=== PATIENT | male | born 1955 | race Caucasian/White ===

== ENCOUNTER → 2016-10-16 | Outpatient (CLI) | payer OTHER | END | disposition home or self-care (01) | LOC: YCFC.O 07:32 | PROVIDERS: ATTEND Nurse Practitioner Family | DX: E11.9 Type 2 diabetes mellitus without complications (principal); E78.2 Mixed hyperlipidemia; I10 Essential (primary) hypertension ==

== ENCOUNTER 2017-01-22 14:13 | Inpatient (IN) | payer OTHER ==
--- NOTE | 2017-01-22 15:07 | RAD ---
EXAM DESCRIPTION: Tibia/Fibula,Left CLINICAL HISTORY: INFECTION OF THE SKIN AND SUBCUTANEOUS TISSUE COMPARISON: None. TECHNIQUE: AP/lateral FINDINGS: Subcutaneous soft tissue swelling is observed. No bone abnormality is seen. No radiopaque foreign body is detected in the soft tissues. Some arterial calcification is observed. Some venous phleboliths are observed along the anterior orosco. IMPRESSION: Soft tissue swelling is observed. No plain film evidence of osteomyelitis is detected. Electronically signed by: Perfecto Mejias MD 01/22/2017 3:05 PM CDT
--- NOTE | 2017-01-22 15:08 | RAD ---
EXAM DESCRIPTION: Foot,Left 3 Views CLINICAL HISTORY: 61 years, Male, LOCAL INFECTION OF THE SKIN AND SUBCUTANEOUS TISSUE COMPARISON: None TECHNIQUE: AP, lateral, and oblique views of the left foot FINDINGS: There is diffuse soft tissue swelling. This is particularly prominent over the forefoot. There are multiple punctate foci of decreased density thought to represent air in the soft tissues. There is complete destruction of the second distal phalanx consistent with osteomyelitis. There is fragmentation of the dorsal aspect of the tarsal bones especially the distal tarsal row also with associated soft tissue swelling. IMPRESSION: Findings are consistent with Charcot foot with fragmentation of the bones of the midfoot especially distal tarsal row Diffuse cellulitis of the forefoot with osteomyelitis involving the second distal phalanx Electronically signed by: Patrice Valdivia MD 01/22/2017 3:06 PM CDT
--- NOTE | 2017-01-22 16:30 | HP ---
SUPERVISING PHYSICIAN: Meño Nino MD CHIEF COMPLAINT: Left foot cellulitis. HISTORY OF PRESENT ILLNESS: Mr. Castro is a 61 year, male patient with a history of diabetes that was noted in the last three weeks to develop a blood blister on his second and third toe. He and his had been trying Epsom soaks at home for treatment efforts, however, he continued to show increasing swelling to the lower left leg and foot. They called [facility] on this past Saturday who then called a prescription in for clindamycin. The cellulitis to the right foot continued to worsen over the weekend despite antibiotic treatment and, therefore, the patient presented to [facility] this afternoon for evaluation and treatment. On exam at the clinic, it was found that the patient had a significant degree of cellulitis with obvious infection to multiple toes on the left foot, therefore, has requested that the patient be admitted to the hospital for definitive treatment with antibiotic therapy. Prior to treatment, it was requested that the patient have evaluation done with laboratory studies and radiographic studies to include plain films and arterial and venous Doppler studies. Those were completed showing on plain film that there was findings consistent with Charcot foot with fragmentation of the bones in the midfoot, especially distal tarsal row with a diffuse cellulitis of the forefoot with osteomyelitis involving the second distal phalanx. He then had arterial and venous Doppler studies completed with no evidence of significant stenosis or any evidence of deep venous thrombosis. Laboratory studies completed as well showed a significant leukocytosis with a white count of 18,000 with differential showing a left shift with D-dimer of 1051. The patient is now going to be admitted directly to the Medical/Surgical Floor for treatment of underlying osteomyelitis of the left foot for definitive treatment with antibiotics and wound care management and consultation with Dr. Caldwell. The patient was admitted to the Medical/ Surgical Floor in stable condition. PAST MEDICAL HISTORY: 1. Non-insulin dependent diabetes mellitus, diagnosed in 2005. 2. Hypertension. PAST SURGICAL HISTORY: No reported surgeries. HOME MEDICATIONS: 1. Pravachol 20 mg daily. 2. Glucophage 500 mg at noon. 3. Glucophage 1000 mg twice daily. 4. Zestril 20 mg daily. 5. Hydrochlorothiazide 25 mg daily. 6. Glyburide 10 mg at bedtime. 7. Glyburide 5 mg daily. ALLERGIES: NO KNOWN DRUG ALLERGIES. FAMILY HISTORY: Both mother and father had diabetes. Mother is from a stroke and father is from complications secondary to diabetes. 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 He is single, but is living with a residential female check viewer. He denies ever smoking , does not drink alcohol, and no illicit drugs. REVIEW OF SYSTEMS: GENERAL: He reports he has had some chills and fevers starting this afternoon prior to admission, but unintentional or unexplained weight loss. HEENT: He has had a headache, but no dizziness or syncopal episodes. No nasal congestion or sore throat. RESPIRATORY: Denies coughing or shortness of breath. CARDIAC: Denies chest pain, palpitations or syncopal episodes. GASTROINTESTINAL: Denies nausea, vomiting, diarrhea, or abdominal pain. GENITOURINARY: He does have increased nocturia, but no reported hematuria or other urinary symptoms. MUSCULOSKELETAL: As noted in history of present illness, swelling and osteomyelitis to the left foot. NEUROLOGIC: Denies syncopal episodes, changes in vision or other neurologic deficits. PHYSICAL EXAMINATION: VITAL SIGNS: On admission, temperature 98.5. Pulse 105. Blood pressure 173/ 79. Respirations 20. Saturation 90% on room air. Admission weight 116.9 kg. GENERAL: The patient is very pleasant, appears to be in no acute distress. He is alert. HEENT: Tympanic membranes are obscured by cerumen. Oropharynx is pink, moist without any lesions. NECK: Supple, nontender. No jugular venous distention. RESPIRATORY: Clear to auscultation bilaterally without rhonchi, wheezing or rales CARDIOVASCULAR: Regular rate and rhythm without any appreciable murmurs, gallops, or rubs. ABDOMEN: Soft, nontender. Positive bowel sounds. EXTREMITIES: The left lower extremity shows a significant amount of erythema involving the midfoot, extending up into the midcalf. There is notable warmth on palpation. Dorsalis pedis and posterior tibial pulses are not felt. There are ecchymotic and mottled areas with erythema to the third toe with drainage between the second and third toes with severe Charcot like deformation noted of the midfoot. NEUROLOGIC: The patient is alert and oriented times three. Facial features are symmetrical. Extraocular movements are within normal limits. There is no nystagmus noted. LABORATORY: CBC shows leukocytosis of 18,000, hemoglobin 12.1, hematocrit 35.8 , platelet count 279,000. Differential does show a left shift. Coagulation studies showed an elevated D-dimer of 1051. Chemistries showed low sodium 132, potassium normal at 4.3. Glucose 134, hemoglobin A1c 6.9, lactic acid 1.4. Liver functions showed just a slightly elevated AST of 44, otherwise, all other liver functions were within normal limits. Urinalysis pending. MICROBIOLOGY: Wound culture of areas of concern of the left foot are pending. Blood cultures are pending. RADIOLOGY: Left foot x-ray, three view, per radiologic interpretation shows findings consistent with Charcot foot with fragmentation of the bones of the midfoot, especially distal tarsal row with diffuse cellulitis of the forefoot with osteomyelitis involving the second distal phalanx. Tib-fib x-ray of the left leg per radiologic interpretation shows soft tissue swelling, but no plain film evidence of osteomyelitis was detected. He also had lower extremity Doppler studies to rule out deep venous thrombosis with no evidence of deep venous thrombosis per radiologic interpretation in the left leg. He also had arterial flow studies of the left leg with no hemodynamically significant stenosis to the foot. ASSESSMENT: 1. Cellulitis of the lower left extremity with osteomyelitis of the second toe with multiple fractures of the midfoot with Charcot deformity. 2. Non-insulin dependent diabetes mellitus with symptomatic peripheral neuropathies. 3. Hypertension. 4. Leukocytosis secondary to #1 with a normal lactic acid with no current indication of sepsis component. 5. Obesity with body mass index of 34.0. PLAN: The patient will be admitted directly to the [facility] for definitive treatment of underlying osteomyelitis of the left foot as noted above. We will start the patient on antibiotic therapy after wound cultures and blood cultures are completed. Antibiotic therapy currently will consist of Levaquin, Flagyl and vancomycin per pharmacy protocol awaiting final culture results to further target antibiotic therapy. Dr. Caldwell has been consulted and seen the patient and will continue to follow the patient along with Dr. Caldwell's recommendations for wound care and further management of the foot. He is encouraged to keep his foot elevated to decrease the swelling and to stay off the foot as much as possible. We will start the patient on DVT prophylaxis as per protocol. We will restart his home medications as appropriate once they have been updated and verified in the computer. We will anticipate length of stay to be at least three to seven days with pending culture results and anticipated residential antibiotic therapy given underlying osteomyelitis. At some point, it would be beneficial to pursue PICC line placement for continued antibiotic therapy should he need IV therapy, however, he may be able to continue with antibiotic therapy at some point with p.o. medications. Until discharge, we will continue to monitor the patient closely and treat appropriately. Once discharged, he will continue to need followup with Dr. Caldwell and [facility] as appropriate. #[id number] [facility]
--- NOTE | 2017-01-22 16:43 | US ---
EXAM DESCRIPTION: Extremity,Lower LT Arteries CLINICAL HISTORY: 61 years Male, R79.1 COMPARISON: None. TECHNIQUE: 2-D color flow and Doppler sonography FINDINGS: Left: Grayscale imaging demonstrates prominent groin lymph nodes. No 2-D evidence of stenosis is observed. Waveforms are multiphasic throughout Peak systolic velocities (cm/sec) are as follows: CRIMINAL INTELLIGENCE SPECIALIST: 210.8 Proximal SFA: 226.1 Mid SFA: 118.2 Distal SFA: 104.1 Popliteal: 123.5 ALONZO: 72.0 AUTOMOTIVE PARTS SALESPERSON: 79.1 Dorsalis pedis: 72 IMPRESSION: No hemodynamically significant stenosis. Electronically signed by: Perfecto Mejias MD 01/22/2017 4:42 PM CDT
--- NOTE | 2017-01-22 16:44 | US ---
EXAM DESCRIPTION: Venous,Lower Extremity LT CLINICAL HISTORY: SWELLING COMPARISON: None Available. TECHNIQUE: Left lower extremity venous duplex FINDINGS: There is no DVT identified. There is normal color flow observed with good flow augmentation. All deep veins compress normally. IMPRESSION: Negative for DVT Electronically signed by: Perfecto Mejias MD 01/22/2017 4:43 PM CDT
[2017-01-22] MEDS ORDERED: VANCOMYCIN PER PHARMACY INJ SCH (17:00)
[2017-01-22] MEDS ORDERED: SODIUM CHLORIDE 0.9% (FLUSH) 10 ML SYG IV PRN (17:06)
[2017-01-22] MEDS ORDERED: GLUCAGON INJ 1 MG VIAL SUBCU PRN (17:06)
[2017-01-22] MEDS ORDERED: ALUM & MAG HYDROX-SIMETHICONE 30 ML UD PO PRN (17:06)
[2017-01-22] MEDS ORDERED: MAGNESIUM HYDROXIDE 30 ML UD PO PRN (17:06)
[2017-01-22] MEDS ORDERED: DEXTROSE 50% 25 GM/50 ML SYG IV PRN (17:06)
[2017-01-22] MEDS ORDERED: ONDANSETRON INJ 4 MG/2 ML VIAL IV PRN (17:06)
--- NOTE | 2017-01-22 17:20 | CONS ---
DATE OF CONSULTATION: 01/22/17 HISTORY OF PRESENT ILLNESS: The patient is a 61 year-old male who was admitted with cellulitis, edema and drainage of the left foot. The drainage is around the third toe which is erythematous and mottled. There is pitting edema and erythema involving at least the mid foot with some edema all the way up into the calf. The patient's states that he gets swelling every day being on his feet all day, but it resolves nights until just recently with the left leg staying swollen and red. He denies significant fever or chills. He has been treated with Clindamycin as an outpatient at [facility]. The patient states he has been a diabetic for approximately 10 years. PAST MEDICAL HISTORY: Otherwise noncontributory. CURRENT MEDICATIONS: As listed in the record. ALLERGIES: As listed in the record. FAMILY HISTORY: Noncontributory. SOCIAL HISTORY: The patient works in the hospital dining area. He is . REVIEW OF SYSTEMS: There has been no known injury to the foot despite the x- ray pictures. PHYSICAL EXAMINATION: GENERAL: The patient is awake, alert and cooperative, and in no acute distress. EXTREMITIES: His left lower extremity reveals erythema past mid foot with edema up to the mid calf. The foot is warm but there is no palpable dorsalis pedis or posterior tibial pulse. The third toe is ecchymotic/mottled with erythema. There is some drainage between the second and third toe and the third and fourth toe, greatest between the second and third toe. RADIOLOGY: X-rays of the foot reveal a Charcot foot with broken bones in the mid foot and what appears to be osteomyelitis involving the distal phalanx of the second toe, not the third. ADDENDUM TO THE RADIOLOGIC EXAM: The arterial ultrasound of the left leg reveals normal arterial flow to the foot. LABORATORY: White count 18,000 this morning. His hemoglobin A1c was 6.2. Creatinine was 1.2. IMPRESSION: 1. Osteomyelitis of the foot with cellulitis of the third toe. 2. Osteomyelitis of the second toe. 3. Multiple fractures of the mid foot. PLAN: Will obtain a culture. Agree to begin broad coverage antibiotic. Await the cultures and elevation to resolve the edema. #[id number] [facility]
[2017-01-22] MEDS ORDERED: IV SET AND CAP CHANGE INJ INJ SCH (17:30)
[2017-01-22] MEDS ORDERED: CHLORHEXIDINE GLUCONATE 4 % 15 ML UD TOP ONE (18:32)
[2017-01-22] MEDS ORDERED: VANCOMYCIN HCL INJ 500 MG VIAL ONE (19:47)
[2017-01-22] MEDS ORDERED: SODIUM CHL 0.9% 250ML (AVIVA) 250 ML IVPB ONE (19:48)
[2017-01-22] MEDS ORDERED: VANCOMYCIN HCL INJ 1,000 MG VIAL IVPB ONE (19:48)
[2017-01-22] MEDS ORDERED: levoFLOXacin 500MG IV 100 ML IVPB ONE (19:55)
[2017-01-22] MEDS: VANCOMYCIN HCL INJ 1,000 MG, VANCOMYCIN HCL INJ 500 MG in SODIUM CHL 0.9% 250ML (AVIVA)... IVPB SCH (19:57)
[2017-01-22] MEDS ORDERED: metroNIDAZOLE IV PREMIX 500MG 100 ML IVPB ONE (19:57)
[2017-01-22] MEDS ORDERED: metFORMIN HCL 500 MG TAB ONE (20:14)
[2017-01-22] MEDS: glyBURIDE 5 MG TAB PO SCH (20:51)
[2017-01-22] MEDS: PRAVASTATIN SODIUM 20 MG TAB PO SCH (20:52)
[2017-01-22] MEDS: INSULIN LISPRO 100 UNITS/ML PEN SUBCU SCH (20:54)
[2017-01-22] MEDS ORDERED: NON-FORMULARY MEDICATION 1 EA MIS (Metformin Hcl [Glucophage] 1,000 MG) PO SCH (21:00)
[2017-01-22] MEDS ORDERED: metFORMIN HCL 500 MG TAB PO ONE (21:00)
[2017-01-22] MEDS: levoFLOXacin 500MG IV 500 MG in PREMIX BAG 1 BAG IVPB SCH (22:25)
[2017-01-22] MEDS: metroNIDAZOLE IV PREMIX 500MG 500 MG in PREMIX BAG 1 BAG IVPB SCH (23:32)
[2017-01-23] MEDS ORDERED: metroNIDAZOLE IV PREMIX 500MG 100 ML IVPB ONE ×3 (05:05→19:22)
[2017-01-23] MEDS ORDERED: VANCOMYCIN HCL INJ 1,000 MG VIAL IVPB ONE ×2 (05:05→07:37)
[2017-01-23] MEDS ORDERED: VANCOMYCIN HCL INJ 500 MG VIAL ONE ×2 (05:05→07:35)
[2017-01-23] MEDS ORDERED: SODIUM CHL 0.9% 250ML (AVIVA) 250 ML IVPB ONE ×2 (05:05→07:36)
[2017-01-23] MEDS: metroNIDAZOLE IV PREMIX 500MG 500 MG in PREMIX BAG 1 BAG IVPB SCH ×3 (05:13→21:06)
[2017-01-23] MEDS: PRAVASTATIN SODIUM 20 MG TAB PO SCH ×4 (06:14→20:36)
[2017-01-23] MEDS: VANCOMYCIN HCL INJ 1,000 MG, VANCOMYCIN HCL INJ 500 MG in SODIUM CHL 0.9% 250ML (AVIVA)... IVPB SCH ×2 (06:19→17:45)
[2017-01-23] MEDS: INSULIN LISPRO 100 UNITS/ML PEN SUBCU SCH ×4 (07:32→20:51)
[2017-01-23] MEDS ORDERED: LISINOPRIL 10 MG TAB ONE (07:35)
[2017-01-23] MEDS ORDERED: metFORMIN HCL 500 MG TAB ONE (07:36)
[2017-01-23] MEDS: hydroCHLOROthiazide 25 MG TAB PO SCH (09:02)
[2017-01-23] MEDS: LISINOPRIL 10 MG TAB PO SCH (09:02)
[2017-01-23] MEDS: glyBURIDE 5 MG TAB PO SCH ×2 (09:02→20:36)
[2017-01-23] MEDS: metFORMIN HCL 500 MG TAB PO SCH ×2 (09:02→17:18)
--- NOTE | 2017-01-23 11:45 | PCM.CORE ---
Physician DVT/VTE - Nurse DVT Assessment & Total Each Risk Factor Represents 2 Points: Age 60-74 Each Risk Factor is 1 Point: Varicose Veins/Edema Legs DVT Assessment Score: 3 - 3-4 High Risk Treatments: Early Ambulation *, Sequential Compression Device Pharmacological: Enoxaparin 40 mg SQ Daily
[2017-01-23] MEDS: ENOXAPARIN SODIUM 40 MG/0.4 ML SYG SUBCU SCH (11:50)
[2017-01-23] MEDS ORDERED: metFORMIN HCL 500 MG TAB PO SCH (12:00)
[2017-01-23] MEDS: HYDROcodone 5MG/APAP 325MG 1 EA TAB PO PRN (12:42)
[2017-01-23] MEDS ORDERED: MORPHINE SULFATE INJ 10 MG/ML VIAL IV PRN (15:47)
[2017-01-23] MEDS ORDERED: PROMETHAZINE HCL 25 MG TAB PO PRN (15:47)
[2017-01-23] MEDS ORDERED: levoFLOXacin 500MG IV 100 ML IVPB ONE (19:21)
[2017-01-23] MEDS: levoFLOXacin 500MG IV 500 MG in PREMIX BAG 1 BAG IVPB SCH (20:00)
--- NOTE | 2017-01-23 20:18 | PN ---
DATE: 01/23/17 SUPERVISING PHYSICIAN: Meño Nino M.D. SUBJECTIVE: The patient is reporting he is having some increasing pain to the foot that he has been elevating as instructed. He does remain afebrile but it was noted that he had 3 bottles out of 2 sets positive for gram positive cocci. He does remain currently on antibiotics to include Rocephin, Levaquin and Flagyl. He is not reporting any diarrhea, nausea or vomiting. Hemodynamically at this point he is stable. OBJECTIVE: VITAL SIGNS: T max 99.1, pulse 90, blood pressure 116/74, respirations 18, satting 93% on room air. I's and O's show a positive balance of 50 with intake 450, out 400. Weight 116.9 kg. CHEST: Lungs are clear to auscultation. HEART: Regular rate and rhythm. ABDOMEN: Soft, non-tender. Positive bowel sounds. EXTREMITIES: Left leg shows some decreasing erythema to the orosco area as marked, but continues to show 1+ edema and then 2+ on the dorsal aspect of the foot. The second and third toes now are showing both to be notably erythematous with continued mottling and a bluish blackish discoloration to both toes. Yesterday the second digit was much more pink in color, again today is showing to the third toe which are both black with early signs of degloving. NEUROLOGIC: He is alert and oriented times three. LABORATORY: Continues with leukocytosis, although showing improvement, although the patient is more euvolemic after IV fluids with the white count now being 16.7. Hemoglobin is down to 11.1 and hematocrit 33.3 with platelet count 261,000. Differential does show a left shift continued. Chemistries show sodium 135, BUN 24 which is improved from admission of 34, creatinine is down from 1.21 to 1.05, glucoses have been ranging from 102 to 226. Liver functions show an elevated AST at 45, otherwise others within normal limits. MICROBIOLOGY: He had 3 bottles out of 2 sets of blood cultures showing gram positive cocci with wound culture collected yesterday on admission showing preliminary gram positive cocci. ASSESSMENT: 1. Cellulitis of the left lower extremity with osteomyelitis of the second toe with multiple fractures of the mid foot with Charcot deformity showing worsening signs of cellulitis to the second and third digit despite initiation of antibiotic therapy to include parenteral vancomycin, Flagyl and Levaquin. Preliminary culture results do show gram positive cocci. 2. Bacteremia secondary to gram positive cocci with source felt to be from ongoing osteomyelitis as noted in number 1 with the patient showing clinically to be stabilizing with parenteral antibiotics awaiting final culture results to further target antibiotic therapy. 3. [id number] diabetes mellitus with symptomatic peripheral neuropathies contributing to Charcot deformity of the left foot and worsening cellulitis and osteomyelitis as noted in number 1. 4. Hypertension controlled with medications. 5. Leukocytosis secondary to number 1 with a normal lactic acid on admission in the presence of bacteremia with the patient showing to be hemodynamically stable and showing some improvement, although more likely contributed to some increased volume status. 6. Mild dehydration on admission with prerenal azotemia showing improvement after IV therapy. 7. Obesity with body mass index of 34.0. PLAN: The patient remains on antibiotic therapy to include vancomycin with a target dose of 15 to 20 mg per kg for osteomyelitis and now covering for bacteremia with gram positive cocci noted on blood cultures today as well as he is on Levaquin and Flagyl. He continues to keep his foot elevated and is on bedrest. He has been started on Lovenox as per protocol. Will continue to follow the patient along in wound care management with Dr. Caldwell's assistance. His home medications have been resumed. His clinical progression at this point is poor in regards to vascularity to the toes in question, although he did have a fairly decent arterial Doppler study. His pain level is fairly well controlled, although I think the patient is very stoic and I have encouraged him to utilize pain medicine that we have made available. I have also discussed the fact that he is going to be on long course antibiotic therapy and will benefit from PICC line placement which we can facilitate in the near future once all culture results and he has had time to clinically progress to decide on ultimate antibiotic therapy. He is aware that there is a high likelihood that he could end up having requirement of amputation of the second and third digits to spare additional tissue and prevent any worsening or ongoing osteomyelitis. Will continue to monitor the patient closely along with Dr. Caldwell and until discharge, continue with antibiotic therapy as directed until final culture results are available. #[id number] [facility]
[2017-01-23] MEDS: ACETAMINOPHEN 325 MG TAB PO PRN (22:00)
[2017-01-24] MEDS: KCL 20 MEQ/NS 1,000 ML IVS PRN ×2 (00:31→22:55)
[2017-01-24] MEDS ORDERED: VANCOMYCIN HCL INJ 1,000 MG VIAL IVPB ONE ×2 (00:32→18:09)
[2017-01-24] MEDS ORDERED: VANCOMYCIN HCL INJ 500 MG VIAL ONE ×2 (00:32→18:09)
[2017-01-24] MEDS ORDERED: SODIUM CHL 0.9% 250ML (AVIVA) 250 ML IVPB ONE ×2 (00:32→18:09)
[2017-01-24] MEDS ORDERED: metroNIDAZOLE IV PREMIX 500MG 100 ML IVPB ONE ×2 (00:32→08:29)
[2017-01-24] MEDS: metroNIDAZOLE IV PREMIX 500MG 500 MG in PREMIX BAG 1 BAG IVPB SCH ×2 (04:50→13:41)
[2017-01-24] MEDS: HYDROcodone 5MG/APAP 325MG 1 EA TAB PO PRN ×3 (04:55→20:55)
[2017-01-24] MEDS: ACETAMINOPHEN 325 MG TAB PO PRN (05:14)
[2017-01-24] MEDS: VANCOMYCIN HCL INJ 1,000 MG, VANCOMYCIN HCL INJ 500 MG in SODIUM CHL 0.9% 250ML (AVIVA)... IVPB SCH ×2 (06:08→18:38)
[2017-01-24] MEDS: PRAVASTATIN SODIUM 20 MG TAB PO SCH ×2 (06:20→12:07)
[2017-01-24] MEDS: INSULIN LISPRO 100 UNITS/ML PEN SUBCU SCH ×4 (07:00→21:26)
[2017-01-24] MEDS ORDERED: levoFLOXacin 500MG IV 100 ML IVPB ONE (08:30)
[2017-01-24] MEDS: LISINOPRIL 10 MG TAB PO SCH (09:24)
[2017-01-24] MEDS: ENOXAPARIN SODIUM 40 MG/0.4 ML SYG SUBCU SCH (09:24)
[2017-01-24] MEDS: hydroCHLOROthiazide 25 MG TAB PO SCH (09:24)
[2017-01-24] MEDS ORDERED: MAGNESIUM HYDROXIDE 30 ML UD PO ONE (09:45)
[2017-01-24] MEDS: metFORMIN HCL 500 MG TAB PO SCH (10:44)
[2017-01-24] MEDS: glyBURIDE 5 MG TAB PO SCH ×2 (10:45→17:36)
--- NOTE | 2017-01-24 11:11 | RAD ---
EXAM DESCRIPTION: Chest,2 Views CLINICAL HISTORY: Fever COMPARISON: October 27, 2015 TECHNIQUE: PA/lateral Findings/impression: Cardiomediastinal silhouette and pulmonary vascularity are within normal limits. Lung volumes are shallow due to poor respiratory effort. Mild linear opacities within the left lung base, most likely due to atelectasis. Underlying infiltrate cannot be entirely excluded. Bilateral costophrenic angles are sharp. No pneumothorax. No acute osseous abnormality. Electronically signed by: Perfecto Tavera MD 01/24/2017 11:10 AM CDT
[2017-01-24] MEDS: HYDROmorphone HCL INJ 2 MG/ML VIAL IV PRN (14:27)
--- NOTE | 2017-01-24 15:12 | PN ---
DATE: 01/24/17 SUBJECTIVE: The patient is lying in the bed, keeping his left leg elevated. Some of the swelling has gone down. There has been slight improvement in the erythema of the foot, but the swelling is still significant on the left. Both second and third toes are significantly involved with blackness, suggesting a significant infectious condition as well as lack of blood supply and viability. OBJECTIVE: VITAL SIGNS: Temperature up to 101.3 earlier today, down to 98.2 later. Blood pressure 109/69. Pulse oximetry 96% on room air. GENERAL: The patient is awake and alert. Appetite is fairly good. Having pain requiring parenteral medications in addition to [place] to help control some of the pain in the left foot. Review of the x-ray does reveal significant Charcot foot on the left with multiple areas of bony fracture as well as almost complete dissolving of the distal phalanx of the left second toe, suggesting a significant osteomyelitis. The area at the base of the toes is swollen, suggesting pus accumulation and significant infectious condition. Even the patient feels as though his toe is "" and may require removal. Dr. Caldwell is assisting in the decision as to how and best approach the significant tissue involvement. ABDOMEN: Soft. HEART: Regular. LUNGS Clear. No nausea or vomiting. LABORATORY: White count up to 17,200 with 78% neutrophils, hemoglobin 11.3, D- dimer 1051. Chemistries show sodium 133, potassium 4, BUN 23, creatinine 1.1. Glucose was down to 69 earlier today with medications adjusted accordingly. Urine shows some hematuria and a trace of leukocyte esterase. Cultures of the drainage from the left foot do reveal MRSA, which is sensitive to vancomycin, but resistant to the clindamycin started as an outpatient which failed treatment. Blood culture on two specimens, four bottles, are all positive for what appeared to be a staph aureus. Final ID and sensitivity by tomorrow morning. Chest x-ray is unremarkable at this time. ASSESSMENT: 1. Acute osteomyelitis of the distal left second toe with localized spread with methicillin-resistant Staphylococcus aureus documented by culture, being treated with vancomycin to involve second as well as third toe with some gangrenous presentation as well as extension up into the forefoot region. 2. Bacteremia with associated septicemia, febrile illness, probably secondary to staph aureus, the same as in the foot with final culture, ID and sensitivity to be available by in the morning. Parenteral treatment is to continue with the patient showing some defervescence of the significant fever noted earlier. 3. Diabetes mellitus, type 2, with adjustment of his diabetic treatment program because of low sugar. 4. Chronic Charcot deformity of the left foot with associated cellulitis, osteomyelitis and multiple bony fractures in the midfoot region. 5. Hypertension, on medications. 6. Leukocytosis, persisting, probably secondary to the septicemia. 7. Mild dehydration on admission with prerenal azotemia, showing improvement with IV hydration. 8. Obesity with body mass index of 34.0. PLAN: We will continue vancomycin with pharmacy protocol to adjust dosing based upon trough determinations. Dr. Caldwell will continue with his ongoing decisions. The patient will be NPO after tonight and may require surgical intervention with amputation and leaving it open. He may eventually require special wound care in an long-term acute care facility including hyperbaric oxygen as well as wound VAC, which are not available here. Close followup is necessary. #[id number] [facility]
--- NOTE | 2017-01-24 15:40 | PN ---
DATE: 01/24/17 SUBJECTIVE: The patient is lying in the bed keeping his left leg elevated. Some of the swelling has gone down. There has been slight improvement in the erythema of the foot but the swelling is still significant on the left. Both second and third toes are significantly involved with blackness suggesting a significant infectious condition as well as lack of blood supply and viability. OBJECTIVE: Temperature was up to 101.3 earlier today down to 98.2 later. Blood pressure 109/69, pulse oximetry 96% on room air. GENERAL: The patient is awake and alert. Appetite is fairly good. Having pain requiring parenteral medications in addition to [place] to help control some of the pain in the left foot. Review of the x-ray does reveal significant Charcot foot on the left with multiple areas of bony fracture as well as almost complete dissolving of the distal phalanx of the left second toe suggesting a significant osteomyelitis. The area at the base of the toes is swollen suggesting pus accumulation and significant infectious condition. Even the patient feels that his toe is "" and may require removal. Dr. Caldwell is assisting in the decision as to how and best approach the significant tissue involvement. ABDOMEN: Soft. HEART: Tones regular. LUNGS: Clear. No nausea or vomiting. LABORATORY: White count is up to 17,200 with 78% neutrophils, hemoglobin 11.3. D-dimer is 1,051. Chemistries show sodium 133, potassium 4, BUN 23, creatinine 1.1, glucose was down to 69 earlier today with medications adjusted accordingly. Urine shows some hematuria and a trace of leukocyte esterase. Cultures of the drainage left foot does reveal MRSA which is sensitive to vancomycin but resistant to the clindamycin started as an outpatient which failed treatment. Blood culture on 2 specimens 4 bottles are all positive for what appear to be a Staphylococcus aureus. Final identification and sensitivity by tomorrow morning. Chest x-ray is unremarkable at this time. ASSESSMENT: 1. Acute osteomyelitis of the distal left second toe with localized spread with Methicillin resistant Staphylococcus aureus documented by culture being treated with vancomycin to involve second as well as third toe with some gangrenous presentation as well as extension up into the forefoot region. 2. Bacteremia with associated septicemia febrile illness probably secondary to Staphylococcus aureus the same as in the foot with final culture, identification and sensitivity to be available by in the morning. Parenteral treatment is to continue with the patient showing some defervescence of the significant fever noted earlier. 3. Diabetes mellitus type 2 with adjustment of his diabetic treatment program because of low sugar. 4. Chronic Charcot deformity of the left foot with associated cellulitis, osteomyelitis and multiple bony fractures in the mid foot region. 5. Hypertension on medications. 6. Leukocytosis persisting, probably secondary to the septicemia. 7. Mild dehydration on admission with a prerenal azotemia showing improvement with IV hydration. 8. Obesity with body mass index of 34. PLAN: Will continue vancomycin with Pharmacy protocol to adjust dosing based upon trough determinations. Dr. Caldwell will continue with his ongoing decisions. The patient will be NPO after tonight and may require surgical intervention with amputation and leaving it open. He may eventually require special wound care in an LTAC facility, including hyperbaric oxygen as well as Wound Vac which are not available here. Close followup is necessary. #[id number] [facility]
[2017-01-24] MEDS ORDERED: BACITRACIN 0.9 GM UD PCKT ONE (19:41)
[2017-01-24] MEDS ORDERED: BIFIDOBACTERIUM INFANTIS 4 MG CAP ONE (19:42)
[2017-01-24] MEDS ORDERED: metFORMIN HCL 500 MG TAB ONE (19:42)
[2017-01-24] MEDS: BIFIDOBACTERIUM INFANTIS 4 MG CAP PO SCH (20:53)
[2017-01-24] MEDS: levoFLOXacin 500MG IV 500 MG in PREMIX BAG 1 BAG IVPB SCH (20:57)
[2017-01-24] MEDS ORDERED: metFORMIN HCL 500 MG TAB PO SCH (21:00)
[2017-01-24] MEDS ORDERED: MUPIROCIN 2 % OINT 22 GM TUBE TOP SCH (21:00)
[2017-01-25] MEDS ORDERED: VANCOMYCIN HCL INJ 1,000 MG VIAL IVPB ONE (05:33)
[2017-01-25] MEDS ORDERED: SODIUM CHL 0.9% 250ML (AVIVA) 250 ML IVPB ONE (05:33)
[2017-01-25] MEDS ORDERED: VANCOMYCIN HCL INJ 500 MG VIAL ONE (05:33)
[2017-01-25] MEDS: HYDROmorphone HCL INJ 2 MG/ML VIAL IV PRN (05:46)
[2017-01-25] MEDS: VANCOMYCIN HCL INJ 1,000 MG, VANCOMYCIN HCL INJ 500 MG in SODIUM CHL 0.9% 250ML (AVIVA)... IVPB SCH (06:00)
[2017-01-25] MEDS: ACETAMINOPHEN 325 MG TAB PO PRN (06:10)
[2017-01-25] MEDS ORDERED: glyBURIDE 5 MG TAB PO SCH (07:30)
[2017-01-25] MEDS ORDERED: metFORMIN HCL 500 MG TAB PO SCH (07:30)
[2017-01-25] MEDS: INSULIN LISPRO 100 UNITS/ML PEN SUBCU SCH ×2 (07:54→12:31)
[2017-01-25] MEDS: hydroCHLOROthiazide 25 MG TAB PO SCH (10:41)
[2017-01-25] MEDS: LISINOPRIL 10 MG TAB PO SCH (10:41)
[2017-01-25] MEDS: BIFIDOBACTERIUM INFANTIS 4 MG CAP PO SCH (10:41)
[2017-01-25] MEDS: ENOXAPARIN SODIUM 40 MG/0.4 ML SYG SUBCU SCH (10:41)
[2017-01-25] MEDS: glyBURIDE 5 MG TAB PO SCH (10:41)
[2017-01-25] MEDS: KCL 20 MEQ/NS 1,000 ML IVS PRN (12:44)
[2017-01-25] MEDS: HYDROcodone 5MG/APAP 325MG 1 EA TAB PO PRN (13:09)
--- NOTE | 2017-01-25 13:44 | DS ---
DISCHARGE DIAGNOSIS: 1. Acute osteomyelitis of the distal left second toe with localized spread with culture positive methicillin-resistant Staphylococcus aureus, treated with vancomycin with the spread of the infection to involve the left third toe with ischemic changes and gangrenous presentation of the forefoot. 2. Acute bacteremia with associated septicemia, febrile illness secondary to Staph aureus with final culture ID and sensitivities still pending at the time of discharge. The likelihood that this is the same gram positive cocci as the methicillin -resistant Staphylococcus aureus found in the foot culture is a strong possibility. The patient will require significant ongoing parenteral therapy in an effort to prevent any evidence of possible subacute bacterial endocarditis associated with this significant infection. 3. Significant cellulitis associated with the abscess of the left foot with extension up to include the anterior portion of the lower two-thirds of the left orosco, showing some resolution and clearing with antibiotic treatment program. 4. Diabetes mellitus, type 2, with adjustment of the medication to assist with ongoing treatment with a transient episode of low sugar noted, improving. 5. Chronic Charcot deformity of the left foot with associated cellulitis, osteomyelitis and multiple bony fractures in the midfoot region. 6. Hypertension, on medications. 7. Leukocytosis, probably secondary to the underlying septicemia, showing improvement. 8. Mild dehydration on admission with prerenal azotemia, showing improvement with IV supplementation of fluid. 9. Obesity with a body mass index of 34. HISTORY OF PRESENT ILLNESS: This 61-year-old, white male is admitted to the hospital from the Emergency Room because of significant three weeks of worsening blood blister on his second and third toes, worsening with drainage, even having failed outpatient soaking therapy and antibiotic coverage. This started a few days before admission on a course of clindamycin which was found to be resistant when sensitivity results were eventually available. The patient has had significant cellulitis and was admitted to the hospital for specific treatment including vancomycin awaiting final culture results,which showed sensitivity to the vancomycin. The patient was seen also in consultation by Dr. Caldwell, general surgery, and the advanced infectious condition and the septicemia with bacteremia was noted, showing the significant severity of the underlying problem and its need for specific treatment options which were not available. Our orthopedist was not available in the hospital for the duration of this hospitalization and he will require specialized orthopedic intervention to assist with the significant infectious condition as well as loss of viability of at least two of his toes as well as the possibly the majority of his Charcot involved foot on the left. LABORATORY: White count 18,000, down to 16,000 with 80% neutrophils, hemoglobin 12.3. Sedrate 33. D-dimer elevated at 1051. Chemistries showed C- reactive protein of 27.8, sugar at the time of discharge fasting was 149. Sodium 133, potassium 4, BUN 23, which was down from 34, while his creatinine is 1.1 on discharge, down from 1.21. Glucose down to 69 on the day before discharge and was up to 219 at admission. Hemoglobin A1c was 6.9. Lactic acid 1.4, albumin 3.5, decreasing to 2.7. CO2 24. Urine does show some hematuria, some glycosuria, and a trace of leukocyte esterase. Vancomycin trough obtained on 01/24/17 at 1720 revealed 15.2 and his vancomycin doses remain the same per pharmacy protocol. MRSA surveillance nasal culture is pending. Culture from the left foot revealed MRSA with sensitivity to vancomycin, Bactrim, doxycycline , Rifampin, and Zyvox. Blood cultures were positive in all four bottles on the two cultures obtained showing a gram positive cocci with final ID and sensitivity pending at the time of discharge, but suggesting staph aureus, probably the same MRSA as culture revealed from the foot infection. Chest x- ray showed no acute findings. Foot x-ray does reveal almost complete loss of the distal phalanx of the left second toe from an apparent osteomyelitis involvement as well as a Charcot foot with fragmentation of bones in the midfoot , especially distal tarsal row. Lower extremity ultrasounds showed no DVT evidence and arterial Doppler showed no hemodynamically significant stenosis of the arterial supply. HOSPITAL COURSE: The patient's erythema on the anterior orosco as well as significant swelling arnold pus formation of the left foot showed some slight improvement towards normal, yet still persisted during the hospital stay. The patient was still requiring analgesics because of the significant pain involved. Condition discussed at length with Dr. Caldwell who feels that it would be premature for us to plan a qyruy-dae-axol amputation without a specialized perinatal technician and orthopedic consult to evaluate for possibility of trying to save tissues as possible. At this time, prognosis for the left foot appears to be very serious indeed and will require ongoing significant treatment parenterally for the underlying MRSA septicemia. For this reason, he is accepted and will be transferred to [facility] in [place] for orthopedic , hospitalist, as well as perinatal technician consultation with infectious disease giving their advice as to treatment that needs to continue. Proper surgical procedure to be performed at the proper time. PLAN: Discharge via EMS to [facility] in poor condition, though clinically stable. He will continue on an 1800 calorie ADA diet. He is at bedrest with the left foot elevated. He can have followup after discharge with Debra Leonard at the [facility]. Continue his home medications. Special emphasis will be on the vancomycin 1500 mg IV q.12h. given at 0600 and 1800 daily. He is scheduled for vancomycin trough to be obtained tomorrow as possible at [facility] at approximately 1715 in the afternoon on 01/26/17 to assist with knowing the need for adjustment of the vancomycin dose which is due at 1800 to follow. Condition discussed with orthopedist, Dr. Nobles, and with hospitalist, Dr. Ballesteros, who have accepted the patient in transfer. He may also benefit by seeing the diabetic assurance specialist perinatal technician to assist with the ongoing decisions as to the level of surgical intervention required. The patient will benefit by infectious disease to determine the length of parenteral therapy for the MRSA bacteremia. Close followup necessary. #[id number] [facility]
[2017-01-25 15:15] VITALS: BP 151/85; TEMP 99.1; O2SAT 97
--- NOTE | 2017-01-31 16:19 | PN ---
DATE: 01/23/17 SUPERVISING PHYSICIAN: Meño Nino M.D. SUBJECTIVE: The patient is reporting he is having some increasing pain to the foot, but he has been elevating it as instructed. He does remain afebrile, but it was noted that he had 3 bottles out of 2 sets positive for gram-negative rods. He does remain currently on antibiotics to include Rocephin, Levaquin and Flagyl. He is not reporting any diarrhea, nausea or vomiting. Hemodynamically at this point, he is stable. OBJECTIVE: VITAL SIGNS: T max 99.1, pulse 90, blood pressure 116/74, respirations 18, satting 93% on room air. I's and O's show a positive balance of 50 with intake 450, out 400. Weight 116.9 kg. CHEST: Lungs are clear to auscultation. HEART: Regular rate and rhythm. ABDOMEN: Soft, non-tender. Positive bowel sounds. EXTREMITIES: Left leg shows some decreasing erythema to the orosco area as marked, but continues to show 1+ edema and then 2+ on the dorsal aspect of the foot. The second and third toes now are showing both to be notably erythematous with continued mottling and a bluish-blackish discoloration to both toes. Yesterday, the second digit was much more pink in color, again today, so much of the third toe which are both black with early signs of degloving. NEUROLOGIC: He is alert and oriented times three. LABORATORY: Continues with leukocytosis, although showing improvement, although the patient is more euvolemic after IV fluids with the white count now being 16.7. Hemoglobin is down to 11.1 and hematocrit 33.3 with platelet count 261,000. Differential does show a left shift continued. Chemistries show potassium 4.3, sodium 135, BUN 24 which is improved from admission of 34, creatinine is down from 1.21 to 1.05. Glucoses have been ranging from 102 to 226. Liver functions show an elevated AST at 45, otherwise others within normal limits. MICROBIOLOGY: He had 3 bottles out of 2 sets of blood cultures showing gram positive cocci with wound culture collected yesterday on admission showing preliminary gram positive cocci. ASSESSMENT: 1. Cellulitis of the left lower extremity with osteomyelitis of the second toe with multiple fractures of the mid foot with Charcot deformity showing worsening signs of cellulitis to the second and third digit despite initiation of antibiotic therapy to include parenteral vancomycin, Flagyl and Levaquin. Preliminary culture results did show gram positive cocci. 2. Bacteremia secondary to gram positive cocci with source felt to be from ongoing osteomyelitis as noted in number 1 with the patient showing clinically to be stabilizing with parenteral antibiotics awaiting final culture results to further target antibiotic therapy. 3. Jli-zuvmsjb-imwivqgub diabetes mellitus with symptomatic peripheral neuropathies contributing to Charcot deformity of the left foot and worsening cellulitis and osteomyelitis as noted in number 1. 4. Hypertension controlled with medications. 5. Leukocytosis secondary to number 1 with normal lactic acid on admission in the presence of bacteremia with the patient showing to be hemodynamically stable and showing some improvement, although more likely contributed to some increased volume status. 6. Mild dehydration on admission with prerenal azotemia showing improvement after IV therapy. 7. Obesity with body mass index of 34.0. PLAN: The patient remains on antibiotic therapy to include vancomycin with a target dose of 15 to 20 mg per kg for osteomyelitis and now to cover for bacteremia with gram positive cocci noted on blood cultures today as well as he is on Levaquin and Flagyl. He continues to keep his foot elevated and is on bedrest. He has been started on Lovenox as per protocol. Will continue to follow the patient along in wound care management with Dr. Caldwell's assistance. His home medications have been resumed. His clinical progression at this point is poor in regards to vascularity to the toes in question, although he did have a fairly decent arterial Doppler study. His pain medication is fairly well controlled, although I think the patient is very stoic and I have encouraged him to utilize pain medicine that we have made available. I have also discussed the fact that he is going to be on long course antibiotic therapy and will benefit from PICC line placement, which we can facilitate in the near future once all culture results and he has had time to clinically progress to decide on ultimate antibiotic therapy. He is aware that there is a high likelihood that he could end up having requirement of amputation of the second and third digits to spare additional tissue and prevent any worsening of ongoing osteomyelitis. Will continue to monitor the patient closely along with Dr. Caldwell. Until discharge, continue with antibiotic therapy as directed until final culture results are available. #[id number] [facility]TDD
== END 2017-01-25 13:24 | disposition short-term general hospital (02) | DRG 872 ==
LOC: YCFC.O 14:13 → MS 16:28
PROVIDERS: ADMIT Nurse Practitioner Family; ATTEND Emergency Medicine
DX: A41.02 Sepsis due to Methicillin resistant Staphylococcus aureus (principal); A52.16 Charcot's arthropathy (tabetic); M86.172 Other acute osteomyelitis, left ankle and foot; L03.116 Cellulitis of left lower limb; E11.52 Type 2 diabetes mellitus with diabetic peripheral angiopathy with gangrene; E11.69 Type 2 diabetes mellitus with other specified complication; E11.622 Type 2 diabetes mellitus with other skin ulcer; R79.1 Abnormal coagulation profile; I10 Essential (primary) hypertension; R51 Headache; E11.42 Type 2 diabetes mellitus with diabetic polyneuropathy; E86.0 Dehydration; B95.62 Methicillin resistant Staphylococcus aureus infection as the cause of diseases classified elsewhere; E11.649 Type 2 diabetes mellitus with hypoglycemia without coma; E66.9 Obesity, unspecified; Z83.3 Family history of diabetes mellitus; Z68.34 Body mass index [BMI] 34.0-34.9, adult; Z79.84 Long term (current) use of oral hypoglycemic drugs; Z79.899 Other long term (current) drug therapy

== ENCOUNTER 2017-02-01 15:43 | Inpatient (IN) | payer SELFPAY ==
[2017-02-01] MEDS ORDERED: ALUM & MAG HYDROX-SIMETHICONE 30 ML UD PO PRN (17:42)
[2017-02-01] MEDS ORDERED: SODIUM PHOS/BIPHOS ENEMA ADULT 133 ML BTTL PR PRN (17:45)
[2017-02-01] MEDS ORDERED: MAGNESIUM HYDROXIDE 30 ML UD PO PRN (17:45)
[2017-02-01] MEDS ORDERED: ACETAMINOPHEN 500 MG TAB PO PRN (17:45)
[2017-02-01] MEDS ORDERED: VANCOMYCIN PER PHARMACY IVPB SCH (18:00)
[2017-02-01] MEDS: HYDROcodone 5MG/APAP 325MG 1 EA TAB PO PRN (19:02)
[2017-02-01] MEDS ORDERED: VANCOMYCIN HCL INJ 1,000 MG VIAL IVPB ONE (20:30)
[2017-02-01] MEDS ORDERED: VANCOMYCIN HCL INJ 500 MG VIAL ONE (20:30)
[2017-02-01] MEDS ORDERED: SODIUM CHLORIDE 0.9% 250ML 250 ML ONE (20:31)
[2017-02-01] MEDS: VANCOMYCIN HCL INJ 1,000 MG, VANCOMYCIN HCL INJ 500 MG in SODIUM CHLORIDE 0.9% 250ML 25... IVPB SCH (20:34)
[2017-02-01] MEDS ORDERED: ASCORBIC ACID 500 MG TAB ONE (20:36)
[2017-02-01] MEDS: ENOXAPARIN SODIUM 40 MG/0.4 ML SYG SUBCU SCH (20:51)
[2017-02-01] MEDS: GABAPENTIN 300 MG CAP PO SCH (20:52)
[2017-02-01] MEDS: PRAVASTATIN SODIUM 20 MG TAB PO SCH (20:52)
[2017-02-01] MEDS ORDERED: ASCORBIC ACID PO SCH (21:00)
--- NOTE | 2017-02-01 22:24 | HP ---
SUPERVISING PHYSICIAN: Meño Nino M.D. CHIEF COMPLAINT: Status post left finso-vcp-whij amputation. HISTORY OF PRESENT ILLNESS: Mr. Castro is a 61 year-old male patient with a history of diabetes that was noted in the last several weeks to develop a blood blister on the second and third toe on the left foot. Initially he and his had tried to treat it with Epson's salt soaks at home, but he continued to have worsening swelling to the lower extremity. On the Saturday before he was admitted on 01/22/17 to [facility] in Acute Care, he was started on an initial dose of clindamycin, however over the weekend his antibiotic treatment failed to provide any improvement, therefore he presented to the clinic at [facility] at that point and was directly admitted to the Medical/Surgical floor on 01/22/17. X-rays of his foot indicated he had a severe Charcot deformity with fragmentations of bone with diffuse cellulitis and the forefoot with osteomyelitis involving the second distal phalange. While in Acute Care at [facility], he developed a positive blood culture and had been initiated on vancomycin per Pharmacy protocol. As well was on Flagyl and Levaquin for treatment of underlying osteomyelitis. On 01/25/17, Mr. Castro was transferred to [facility] in [place] secondary to increasing severity of underlying septicemia and bacteremia, and ongoing problem with osteomyelitis as noted on admission. He was transferred on 01/25/17, and on 01/26/17 had a below -the-knee amputation of the left leg for the ongoing osteomyelitis and severe disease process. The patient recovered well and remained on vancomycin, but now is in need of ongoing physical therapy and rehabilitation given the fact that he had a ywpqq-oim-vbae amputation and has significant deconditioning. It is requested by [facility] that the patient be transferred to Swing Bed to continue with rehab efforts in efforts to improve his safety at discharge prior to discharging home. The patient was admitted to Swing Bed on 02/01/17 in stable condition. He did have a PICC line placed prior to discharge and will need ongoing additional parenteral antibiotics to include vancomycin to conclude on 02/08/17. PAST MEDICAL HISTORY: 1. Jgg-igbbriz-ehyimhhls diabetes mellitus diagnosed in 2005 with complications as noted above with Charcot deformity and osteomyelitis of the left foot requiring bnulk-xwg-acjm amputation on 01/26/17. 2. Hypertension. PAST SURGICAL HISTORY: 1. Recent afvyl-myq-xsuy amputation on left leg on 01/26/17 secondary to complications from osteomyelitis of the foot. HOME MEDICATIONS: 1. DiaBeta 5 mg twice daily. 2. Ranitidine 150 mg twice daily. 3. Pravachol 20 mg at bedtime. 4. Metformin 500 mg twice daily extended release. 5. Lisinopril 20 mg daily. 6. Hydrochlorothiazide 25 mg daily. 7. Dixie 5/325 one every 6 hours as needed for pain. 8. Gabapentin 300 mg daily. 9. Gabapentin 600 mg at bedtime. 10. Ascorbic acid 1 chewable tablet twice daily. 11. Mylanta 30 mL every 4 hours as needed for indigestion. ALLERGIES: NO KNOWN DRUG ALLERGIES. FAMILY HISTORY: Both mother and father had diabetes. Mother is from a stroke. Father is from complications secondary to diabetes. SOCIAL HISTORY: The patient currently is disabled secondary to zslfh-fiw-bfcl amputation but had previously worked in [employer] services at [facility]. He has worked at the hospital since 2004. 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 he denies ever smoking, drinking alcohol or any illicit drug use. REVIEW OF SYSTEMS: He denies any chills or fevers. HEENT: Denies any headaches, dizziness, syncopal episodes, nasal congestion or sore throat. RESPIRATORY: Denies any cough or shortness of breath. CARDIOVASCULAR: Denies any chest pains, palpitations or syncopal episodes. GASTROINTESTINAL: Denies any nausea, vomiting, diarrhea or abdominal pains. GENITOURINARY: He has had some increased nocturia in the past, but denies any hematuria or other urinary symptoms. MUSCULOSKELETAL: As noted in the History of Present Illness, recent below-the- knee amputation on left leg on 01/26/17 secondary to complications of osteomyelitis of the foot. NEUROLOGIC: Denies any syncopal episodes, change in vision or neurologic deficits. PHYSICAL EXAMINATION: VITAL SIGNS: On admission to [facility] Bed, temperature 99.1, pulse 82, blood pressure 151/85, respirations 18, satting 97% on room air. GENERAL: The patient is very pleasant. He appears to be in no distress. He is very comfortable, alert and oriented. HEENT: Tympanic membranes are clear today bilaterally. Oropharynx is pink and moist without any lesions. NECK: There is no jugular venous distention. Neck is supple, non-tender. CHEST: Lungs are clear to auscultation without any rhonchi, wheezing or rales. CARDIOVASCULAR: Regular rate and rhythm without appreciable murmurs, gallops, or rubs. ABDOMEN: Soft, non-tender. Positive bowel sounds. EXTREMITIES: Left leg has a recent chisu-xpx-xkeh amputation with a pressure dressing changed with instructions not to remove dressing until he is seen in followup this saturday with his surgeon. Right leg shows no clubbing, cyanosis or edema. NEUROLOGIC: The patient is alert and oriented times three. Facial features are symmetrical. Extraocular movements are within normal limits. There was no nystagmus noted. LABORATORY: CBC and CMP pending. Urinalysis pending. ASSESSMENT: 1. Recent sokqo-hqg-gdpv amputation on left leg on 01/26/17 secondary to complications from osteomyelitis of the second toe and multiple fractures of the mid foot with Charcot deformity currently on vancomycin. 2. Hmk-rbnpehx-nnknozbad diabetes mellitus with symptomatic peripheral neuropathies on Gabapentin. 3. Hypertension. 4. Obesity with body mass index of 32.6. PLAN: The patient will be admitted to Swing Bed for ongoing physical therapy and rehabilitation in an effort to facilitate the patient returning home safely after a ennoy-rqh-wece amputation on the left leg. There will be social consultation as well as physical therapy to assist in his needs on physical therapy and Swing Bed, and reconditioning. Will resume his home medications as instructed and once verified in the electronic medical records. He will be on DVT prophylaxis as per protocol. Wound care at this point will consist of close monitoring of the current surgical bandage with anticipation of followup appointment this coming Saturday with his surgeon in [place] who has left instructions not to remove bandage until that point. He will be started on an 1800 calorie ADA diet and provided pain medicine as needed with anticipation of length of stay to be 3 to 7 days. Again, the patient will need to be out on pass this coming 02/04/17, so he can have a followup appointment with his surgeon in [place]. Until discharge, will continue to monitor the patient closely as he progresses through with physical therapy and provide close assistance and monitoring of any medical needs that he may need, and anticipate discharge at the discretion of Physical Therapy once the patient has met his set goals. #[id number] MTDD
[2017-02-02] MEDS ORDERED: SODIUM CHLORIDE 0.9% 250ML 250 ML ONE ×2 (08:00→19:13)
[2017-02-02] MEDS ORDERED: VANCOMYCIN HCL INJ 500 MG VIAL ONE ×2 (08:00→19:13)
[2017-02-02] MEDS ORDERED: ASCORBIC ACID 500 MG TAB ONE (08:01)
[2017-02-02] MEDS ORDERED: VANCOMYCIN HCL INJ 1,000 MG VIAL IVPB ONE ×2 (08:02→19:14)
[2017-02-02] MEDS: BIFIDOBACTERIUM INFANTIS 4 MG CAP PO SCH (08:12)
[2017-02-02] MEDS: LISINOPRIL 10 MG TAB PO SCH (08:13)
[2017-02-02] MEDS: GABAPENTIN 300 MG CAP PO SCH ×2 (08:13→20:01)
[2017-02-02] MEDS: hydroCHLOROthiazide 25 MG TAB PO SCH (08:13)
[2017-02-02] MEDS: DOCUSATE SODIUM 100 MG CAP PO SCH (08:13)
[2017-02-02] MEDS: metFORMIN XR 500 MG TAB.ER.24 PO SCH ×2 (08:13→17:04)
[2017-02-02] MEDS: glyBURIDE 5 MG TAB PO SCH ×2 (08:13→17:04)
[2017-02-02] MEDS: VANCOMYCIN HCL INJ 1,000 MG, VANCOMYCIN HCL INJ 500 MG in SODIUM CHLORIDE 0.9% 250ML 25... IVPB SCH ×2 (08:20→19:43)
[2017-02-02] MEDS: ASCORBIC ACID 500 MG TAB PO SCH ×2 (08:32→20:02)
[2017-02-02] MEDS: HYDROcodone 5MG/APAP 325MG 1 EA TAB PO PRN ×2 (15:21→20:47)
[2017-02-02] MEDS ORDERED: DEXTROSE 50% 25 GM/50 ML SYG IV PRN (16:47)
[2017-02-02] MEDS ORDERED: GLUCAGON INJ 1 MG VIAL SUBCU PRN (16:47)
[2017-02-02] MEDS: INSULIN LISPRO 100 UNITS/ML PEN SUBCU SCH ×2 (17:04→21:01)
[2017-02-02] MEDS: ENOXAPARIN SODIUM 40 MG/0.4 ML SYG SUBCU SCH (20:01)
[2017-02-02] MEDS: SODIUM CHLORIDE 0.9% (FLUSH) 10 ML SYG IV SCH (20:02)
[2017-02-02] MEDS: PRAVASTATIN SODIUM 20 MG TAB PO SCH (20:02)
[2017-02-02] MEDS: HEPARIN SODIUM 100 U/ML 5 ML SYG IV SCH (20:04)
[2017-02-03] MEDS ORDERED: VANCOMYCIN HCL INJ 500 MG VIAL ONE ×2 (07:10→19:51)
[2017-02-03] MEDS ORDERED: SODIUM CHLORIDE 0.9% 250ML 250 ML ONE ×2 (07:10→19:51)
[2017-02-03] MEDS ORDERED: VANCOMYCIN HCL INJ 1,000 MG VIAL IVPB ONE ×2 (07:12→19:53)
[2017-02-03] MEDS: INSULIN LISPRO 100 UNITS/ML PEN SUBCU SCH ×4 (07:20→21:00)
[2017-02-03] MEDS: glyBURIDE 5 MG TAB PO SCH ×2 (07:30→16:59)
[2017-02-03] MEDS: GABAPENTIN 300 MG CAP PO SCH ×3 (07:30→20:27)
[2017-02-03] MEDS: DOCUSATE SODIUM 100 MG CAP PO SCH ×2 (07:30→08:02)
[2017-02-03] MEDS: hydroCHLOROthiazide 25 MG TAB PO SCH ×2 (07:30→08:02)
[2017-02-03] MEDS: LISINOPRIL 10 MG TAB PO SCH ×2 (07:30→08:02)
[2017-02-03] MEDS: BIFIDOBACTERIUM INFANTIS 4 MG CAP PO SCH ×2 (07:30→08:02)
[2017-02-03] MEDS: ASCORBIC ACID 500 MG TAB PO SCH ×3 (07:30→20:27)
[2017-02-03] MEDS: VANCOMYCIN HCL INJ 1,000 MG, VANCOMYCIN HCL INJ 500 MG in SODIUM CHLORIDE 0.9% 250ML 25... IVPB SCH ×2 (07:30→20:26)
[2017-02-03] MEDS: metFORMIN XR 500 MG TAB.ER.24 PO SCH ×2 (07:30→16:59)
[2017-02-03] MEDS: HEPARIN SODIUM 100 U/ML 5 ML SYG IV SCH ×3 (07:31→20:26)
[2017-02-03] MEDS: SODIUM CHLORIDE 0.9% (FLUSH) 10 ML SYG IV SCH ×2 (07:32→20:25)
[2017-02-03] MEDS: HYDROcodone 5MG/APAP 325MG 1 EA TAB PO PRN ×2 (13:49→20:03)
[2017-02-03] MEDS: PRAVASTATIN SODIUM 20 MG TAB PO SCH (20:27)
[2017-02-03] MEDS: ENOXAPARIN SODIUM 40 MG/0.4 ML SYG SUBCU SCH (20:27)
[2017-02-04] MEDS: HYDROcodone 5MG/APAP 325MG 1 EA TAB PO PRN ×2 (04:31→13:50)
[2017-02-04] MEDS: INSULIN LISPRO 100 UNITS/ML PEN SUBCU SCH ×4 (08:11→21:13)
[2017-02-04] MEDS: glyBURIDE 5 MG TAB PO SCH ×2 (08:11→17:05)
[2017-02-04] MEDS: metFORMIN XR 500 MG TAB.ER.24 PO SCH ×2 (08:11→17:05)
[2017-02-04] MEDS: BIFIDOBACTERIUM INFANTIS 4 MG CAP PO SCH (08:36)
[2017-02-04] MEDS: ASCORBIC ACID 500 MG TAB PO SCH ×2 (08:36→21:14)
[2017-02-04] MEDS: DOCUSATE SODIUM 100 MG CAP PO SCH (08:36)
[2017-02-04] MEDS: hydroCHLOROthiazide 25 MG TAB PO SCH (08:36)
[2017-02-04] MEDS: GABAPENTIN 300 MG CAP PO SCH ×2 (08:36→21:14)
[2017-02-04] MEDS: HEPARIN SODIUM 100 U/ML 5 ML SYG IV SCH ×2 (08:37→21:12)
[2017-02-04] MEDS: LISINOPRIL 10 MG TAB PO SCH (08:37)
[2017-02-04] MEDS: SODIUM CHLORIDE 0.9% (FLUSH) 10 ML SYG IV SCH ×2 (08:38→21:13)
--- NOTE | 2017-02-04 10:34 | PN ---
DATE: 02/04/17 SUBJECTIVE: The patient is now in the third day of his Swing Bed rehabilitation status after recent fpmth-wps-whry amputation, left leg, because of slight osteomyelitis involving toes of the left foot with localized spread even to involve proximal foot with a Charcot foot pathology underlying. He tolerated the procedure quite well. His diabetes seems to be doing fairly well. His general appearance is improved and he is fully awake and alert. OBJECTIVE: VITAL SIGNS: temperature 99.7 at 2 AM. Blood pressure 119/75. Pulse oximetry 94% on room air. Weight 112 kg. LUNGS: Clear. HEART: Regular. NEUROLOGIC: The patient is awake, alert, oriented and communicative. LABORATORY: No recent studies. ASSESSMENT: 1. Postoperative ygevc-ilk-dxlb amputation, left leg, performed on 01/26/17 in [facility]. This was secondary to chronic osteomyelitis with progression of infection with involvement within a Charcot deformity treated with vancomycin. 2. History of methicillin-resistant Staphylococcus aureus infection in the osteomyelitis with left foot tissue culture positive as well as blood cultures positive, suggesting an methicillin-resistant Staphylococcus aureus septicemia, treated with vancomycin and scheduled to be treated through 02/08/17. 3. Ifo-xhyttov-ogbkofjaf diabetes mellitus, symptomatic with peripheral neuropathies. 4. History of hypertension. 5. Obesity with body mass index of 32.6. PLAN: The patient is given a pass today to visit his surgeon in [place]. His will be taking him, at which time the wound, the stump will be examined and specific advice will be given for ongoing care as rehabilitation continues. Close followup necessary. #[id number] [facility]
[2017-02-04] MEDS: VANCOMYCIN HCL INJ 1,000 MG, VANCOMYCIN HCL INJ 500 MG in SODIUM CHLORIDE 0.9% 250ML 25... IVPB SCH ×2 (11:11→14:15)
[2017-02-04] MEDS ORDERED: SODIUM CHLORIDE 0.9% 250ML 250 ML ONE (14:10)
[2017-02-04] MEDS ORDERED: VANCOMYCIN HCL INJ 500 MG VIAL ONE (14:10)
[2017-02-04] MEDS ORDERED: VANCOMYCIN HCL INJ 1,000 MG VIAL IVPB ONE (14:10)
[2017-02-04] MEDS: PRAVASTATIN SODIUM 20 MG TAB PO SCH (21:14)
[2017-02-04] MEDS: ENOXAPARIN SODIUM 40 MG/0.4 ML SYG SUBCU SCH (21:14)
[2017-02-05] MEDS ORDERED: VANCOMYCIN HCL INJ 1,000 MG VIAL IVPB ONE ×2 (01:16→14:18)
[2017-02-05] MEDS ORDERED: VANCOMYCIN HCL INJ 500 MG VIAL ONE ×2 (01:16→14:17)
[2017-02-05] MEDS ORDERED: SODIUM CHLORIDE 0.9% 250ML 250 ML ONE ×2 (01:16→14:18)
[2017-02-05] MEDS: VANCOMYCIN HCL INJ 1,000 MG, VANCOMYCIN HCL INJ 500 MG in SODIUM CHLORIDE 0.9% 250ML 25... IVPB SCH ×2 (02:25→15:01)
[2017-02-05] MEDS: SODIUM CHLORIDE 0.9% (FLUSH) 10 ML SYG IV PRN (02:26)
[2017-02-05] MEDS: INSULIN LISPRO 100 UNITS/ML PEN SUBCU SCH ×4 (07:56→21:41)
[2017-02-05] MEDS: glyBURIDE 5 MG TAB PO SCH ×2 (07:57→17:43)
[2017-02-05] MEDS: metFORMIN XR 500 MG TAB.ER.24 PO SCH ×2 (07:57→17:43)
[2017-02-05] MEDS: BIFIDOBACTERIUM INFANTIS 4 MG CAP PO SCH (09:05)
[2017-02-05] MEDS: DOCUSATE SODIUM 100 MG CAP PO SCH (09:05)
[2017-02-05] MEDS: ASCORBIC ACID 500 MG TAB PO SCH ×2 (09:05→20:16)
[2017-02-05] MEDS: LISINOPRIL 10 MG TAB PO SCH (09:06)
[2017-02-05] MEDS: HEPARIN SODIUM 100 U/ML 5 ML SYG IV SCH ×2 (09:07→20:17)
[2017-02-05] MEDS: SODIUM CHLORIDE 0.9% (FLUSH) 10 ML SYG IV SCH ×2 (09:07→20:21)
[2017-02-05] MEDS: hydroCHLOROthiazide 25 MG TAB PO SCH (09:07)
[2017-02-05] MEDS: GABAPENTIN 300 MG CAP PO SCH ×2 (09:42→20:16)
--- NOTE | 2017-02-05 15:48 | PN ---
DATE: 02/05/17 SUBJECTIVE: The patient is sitting up on the side of the bed. The stump was thoroughly examined by the orthopedic surgeon yesterday in the clinic in [place]. He is very comfortable with the condition of the wound at this time and many of the winter were removed. He is now about two weeks into the course of his vancomycin therapy. OBJECTIVE: VITAL SIGNS: Temperature 99.2. Pulse 115. Blood pressure 134/88. Pulse oximetry 97% on room air. GENERAL: The patient feels quite stable. Appetite is improved. LUNGS: Clear. HEART: Regular. EXTREMITIES: The stump dressing will be continued with dry gauze on a daily basis. Close observation of the tissues is important. ASSESSMENT: 1. Postoperative hnnta-bkb-xhpb amputation, left leg, performed on 01/26/17 in [facility]. This was secondary to chronic osteomyelitis with progression of infection involving the foot as well as a Charcot deformity and treated with vancomycin. 2. History of methicillin-resistant Staphylococcus aureus infection in the osteomyelitis with left foot tissue and bacteremia with blood culture positive also noted, treated with vancomycin, scheduled to be treated through 02/11/17. That would be a total of three weeks. 3. Xdt-moyckjc-xniznxbji diabetes mellitus, symptomatic with peripheral neuropathies. 4. History of hypertension. 5. Obesity with body mass index of 32.6. PLAN: Dr. Henning was called and her feeling is that if the echocardiogram being performed today with Dr. Manuel' clinic show fairly normal appearance of the valves, then to continue treatment with vancomycin for a total of three weeks. The three weeks should end next 02/11/17. Echocardiogram is pending. The patient is scheduled to have an appointment with "[employer]" who will be able to assist in getting adequate prosthesis to assist him with his ongoing daily care and activities. That will be performed the first of February. He is to see the orthopedist in [place] approximately four weeks from yesterday. [facility][id number] [facility]
[2017-02-05] MEDS: ENOXAPARIN SODIUM 40 MG/0.4 ML SYG SUBCU SCH (20:15)
[2017-02-05] MEDS: HYDROcodone 5MG/APAP 325MG 1 EA TAB PO PRN (20:16)
[2017-02-05] MEDS: PRAVASTATIN SODIUM 20 MG TAB PO SCH (20:17)
[2017-02-06] MEDS ORDERED: VANCOMYCIN HCL INJ 1,000 MG VIAL IVPB ONE ×3 (05:51→20:07)
[2017-02-06] MEDS ORDERED: VANCOMYCIN HCL INJ 500 MG VIAL ONE ×3 (05:51→20:05)
[2017-02-06] MEDS ORDERED: SODIUM CHLORIDE 0.9% 250ML 250 ML ONE ×3 (05:51→20:05)
[2017-02-06] MEDS: VANCOMYCIN HCL INJ 1,000 MG, VANCOMYCIN HCL INJ 500 MG in SODIUM CHLORIDE 0.9% 250ML 25... IVPB SCH ×2 (05:57→15:18)
[2017-02-06] MEDS: INSULIN LISPRO 100 UNITS/ML PEN SUBCU SCH ×4 (08:09→21:00)
[2017-02-06] MEDS: ASCORBIC ACID 500 MG TAB PO SCH ×2 (08:10→20:40)
[2017-02-06] MEDS: DOCUSATE SODIUM 100 MG CAP PO SCH (08:10)
[2017-02-06] MEDS: LISINOPRIL 10 MG TAB PO SCH (08:10)
[2017-02-06] MEDS: GABAPENTIN 300 MG CAP PO SCH ×2 (08:10→20:40)
[2017-02-06] MEDS: hydroCHLOROthiazide 25 MG TAB PO SCH (08:10)
[2017-02-06] MEDS: glyBURIDE 5 MG TAB PO SCH ×2 (08:11→18:24)
[2017-02-06] MEDS: metFORMIN XR 500 MG TAB.ER.24 PO SCH ×2 (08:11→18:24)
[2017-02-06] MEDS: HEPARIN SODIUM 100 U/ML 5 ML SYG IV SCH ×2 (08:11→20:41)
[2017-02-06] MEDS: BIFIDOBACTERIUM INFANTIS 4 MG CAP PO SCH (08:11)
[2017-02-06] MEDS: SODIUM CHLORIDE 0.9% (FLUSH) 10 ML SYG IV SCH ×2 (08:12→20:41)
[2017-02-06] MEDS: HYDROcodone 5MG/APAP 325MG 1 EA TAB PO PRN (20:37)
[2017-02-06] MEDS: ENOXAPARIN SODIUM 40 MG/0.4 ML SYG SUBCU SCH (20:39)
[2017-02-06] MEDS: PRAVASTATIN SODIUM 20 MG TAB PO SCH (20:40)
[2017-02-07] MEDS: VANCOMYCIN HCL INJ 1,000 MG, VANCOMYCIN HCL INJ 500 MG in SODIUM CHLORIDE 0.9% 250ML 25... IVPB SCH ×3 (01:05→14:31)
[2017-02-07] MEDS ORDERED: VANCOMYCIN HCL INJ 500 MG VIAL ONE ×2 (07:25→17:55)
[2017-02-07] MEDS ORDERED: SODIUM CHLORIDE 0.9% 250ML 250 ML ONE ×2 (07:26→17:55)
[2017-02-07] MEDS ORDERED: VANCOMYCIN HCL INJ 1,000 MG VIAL IVPB ONE ×2 (07:27→17:56)
[2017-02-07] MEDS: INSULIN LISPRO 100 UNITS/ML PEN SUBCU SCH ×4 (07:32→21:52)
[2017-02-07] MEDS: glyBURIDE 5 MG TAB PO SCH ×2 (07:33→16:57)
[2017-02-07] MEDS: metFORMIN XR 500 MG TAB.ER.24 PO SCH ×2 (07:33→16:57)
[2017-02-07] MEDS: BIFIDOBACTERIUM INFANTIS 4 MG CAP PO SCH (08:38)
[2017-02-07] MEDS: ASCORBIC ACID 500 MG TAB PO SCH ×2 (08:38→21:30)
[2017-02-07] MEDS: hydroCHLOROthiazide 25 MG TAB PO SCH (08:38)
[2017-02-07] MEDS: DOCUSATE SODIUM 100 MG CAP PO SCH (08:38)
[2017-02-07] MEDS: LISINOPRIL 10 MG TAB PO SCH (08:39)
[2017-02-07] MEDS: HEPARIN SODIUM 100 U/ML 5 ML SYG IV SCH ×2 (08:39→21:29)
[2017-02-07] MEDS: SODIUM CHLORIDE 0.9% (FLUSH) 10 ML SYG IV SCH ×2 (08:40→21:15)
[2017-02-07] MEDS: GABAPENTIN 300 MG CAP PO SCH ×2 (08:42→21:30)
[2017-02-07] MEDS: HYDROcodone 5MG/APAP 325MG 1 EA TAB PO PRN (09:54)
[2017-02-07] MEDS: ENOXAPARIN SODIUM 40 MG/0.4 ML SYG SUBCU SCH (21:30)
[2017-02-07] MEDS: PRAVASTATIN SODIUM 20 MG TAB PO SCH (21:30)
[2017-02-08] MEDS: VANCOMYCIN HCL INJ 1,000 MG, VANCOMYCIN HCL INJ 500 MG in SODIUM CHLORIDE 0.9% 250ML 25... IVPB SCH ×2 (02:19→16:12)
[2017-02-08] MEDS: HEPARIN SODIUM 100 U/ML 5 ML SYG IV PRN (05:03)
[2017-02-08] MEDS: INSULIN LISPRO 100 UNITS/ML PEN SUBCU SCH ×4 (07:00→20:49)
[2017-02-08] MEDS: glyBURIDE 5 MG TAB PO SCH ×2 (08:10→16:41)
[2017-02-08] MEDS: metFORMIN XR 500 MG TAB.ER.24 PO SCH ×2 (08:10→16:41)
[2017-02-08] MEDS: DOCUSATE SODIUM 100 MG CAP PO SCH (10:00)
[2017-02-08] MEDS: BIFIDOBACTERIUM INFANTIS 4 MG CAP PO SCH (10:00)
[2017-02-08] MEDS: LISINOPRIL 10 MG TAB PO SCH (10:01)
[2017-02-08] MEDS: hydroCHLOROthiazide 25 MG TAB PO SCH (10:01)
[2017-02-08] MEDS: HEPARIN SODIUM 100 U/ML 5 ML SYG IV SCH ×2 (10:01→20:47)
[2017-02-08] MEDS: GABAPENTIN 300 MG CAP PO SCH ×2 (10:01→20:46)
[2017-02-08] MEDS: ASCORBIC ACID 500 MG TAB PO SCH ×2 (10:01→20:46)
[2017-02-08] MEDS: SODIUM CHLORIDE 0.9% (FLUSH) 10 ML SYG IV SCH ×2 (10:04→20:46)
[2017-02-08] MEDS: HYDROcodone 5MG/APAP 325MG 1 EA TAB PO PRN ×3 (11:14→20:56)
[2017-02-08] MEDS ORDERED: VANCOMYCIN HCL INJ 500 MG VIAL ONE ×2 (15:34→19:41)
[2017-02-08] MEDS ORDERED: VANCOMYCIN HCL INJ 1,000 MG VIAL IVPB ONE ×2 (15:35→19:43)
[2017-02-08] MEDS ORDERED: SODIUM CHLORIDE 0.9% 250ML 250 ML ONE ×2 (15:35→19:41)
[2017-02-08] MEDS: PRAVASTATIN SODIUM 20 MG TAB PO SCH (20:46)
[2017-02-08] MEDS: ENOXAPARIN SODIUM 40 MG/0.4 ML SYG SUBCU SCH (20:47)
[2017-02-09] MEDS: VANCOMYCIN HCL INJ 1,000 MG, VANCOMYCIN HCL INJ 500 MG in SODIUM CHLORIDE 0.9% 250ML 25... IVPB SCH ×2 (03:19→16:02)
[2017-02-09] MEDS: INSULIN LISPRO 100 UNITS/ML PEN SUBCU SCH ×4 (07:00→20:58)
[2017-02-09] MEDS: metFORMIN XR 500 MG TAB.ER.24 PO SCH ×2 (08:03→17:00)
[2017-02-09] MEDS: glyBURIDE 5 MG TAB PO SCH ×2 (08:03→17:00)
[2017-02-09] MEDS: ASCORBIC ACID 500 MG TAB PO SCH ×2 (09:04→20:04)
[2017-02-09] MEDS: HEPARIN SODIUM 100 U/ML 5 ML SYG IV SCH ×2 (09:04→20:01)
[2017-02-09] MEDS: LISINOPRIL 10 MG TAB PO SCH (09:04)
[2017-02-09] MEDS: BIFIDOBACTERIUM INFANTIS 4 MG CAP PO SCH (09:04)
[2017-02-09] MEDS: GABAPENTIN 300 MG CAP PO SCH ×2 (09:04→20:03)
[2017-02-09] MEDS: DOCUSATE SODIUM 100 MG CAP PO SCH (09:04)
[2017-02-09] MEDS: hydroCHLOROthiazide 25 MG TAB PO SCH (09:04)
[2017-02-09] MEDS: SODIUM CHLORIDE 0.9% (FLUSH) 10 ML SYG IV SCH ×2 (09:05→20:01)
[2017-02-09] MEDS: HYDROcodone 5MG/APAP 325MG 1 EA TAB PO PRN ×2 (12:24→20:04)
[2017-02-09] MEDS ORDERED: SODIUM CHLORIDE 0.9% 250ML 250 ML ONE (19:02)
[2017-02-09] MEDS ORDERED: VANCOMYCIN HCL INJ 1,000 MG VIAL IVPB ONE (19:04)
[2017-02-09] MEDS: PRAVASTATIN SODIUM 20 MG TAB PO SCH (20:03)
[2017-02-09] MEDS: VANCOMYCIN HCL INJ 1,000 MG in SODIUM CHLORIDE 0.9% 250ML 250 ML IVPB SCH (20:04)
[2017-02-09] MEDS: ENOXAPARIN SODIUM 40 MG/0.4 ML SYG SUBCU SCH (20:04)
[2017-02-10] MEDS: INSULIN LISPRO 100 UNITS/ML PEN SUBCU SCH ×4 (07:10→21:00)
[2017-02-10] MEDS ORDERED: SODIUM CHLORIDE 0.9% 250ML 250 ML ONE ×2 (07:20→19:14)
[2017-02-10] MEDS ORDERED: VANCOMYCIN HCL INJ 1,000 MG VIAL IVPB ONE ×2 (07:22→19:14)
[2017-02-10] MEDS: VANCOMYCIN HCL INJ 1,000 MG in SODIUM CHLORIDE 0.9% 250ML 250 ML IVPB SCH ×2 (08:28→19:40)
[2017-02-10] MEDS: glyBURIDE 5 MG TAB PO SCH ×2 (08:28→17:18)
[2017-02-10] MEDS: BIFIDOBACTERIUM INFANTIS 4 MG CAP PO SCH (08:29)
[2017-02-10] MEDS: DOCUSATE SODIUM 100 MG CAP PO SCH (08:29)
[2017-02-10] MEDS: metFORMIN XR 500 MG TAB.ER.24 PO SCH ×2 (08:29→17:18)
[2017-02-10] MEDS: GABAPENTIN 300 MG CAP PO SCH ×2 (08:29→21:22)
[2017-02-10] MEDS: hydroCHLOROthiazide 25 MG TAB PO SCH (08:29)
[2017-02-10] MEDS: LISINOPRIL 10 MG TAB PO SCH (08:29)
[2017-02-10] MEDS: HEPARIN SODIUM 100 U/ML 5 ML SYG IV SCH ×2 (08:30→19:41)
[2017-02-10] MEDS: ASCORBIC ACID 500 MG TAB PO SCH ×2 (08:53→21:22)
[2017-02-10] MEDS: SODIUM CHLORIDE 0.9% (FLUSH) 10 ML SYG IV SCH (19:40)
[2017-02-10] MEDS: HYDROcodone 5MG/APAP 325MG 1 EA TAB PO PRN ×2 (19:42→21:22)
[2017-02-10] MEDS: ENOXAPARIN SODIUM 40 MG/0.4 ML SYG SUBCU SCH (21:21)
[2017-02-10] MEDS: PRAVASTATIN SODIUM 20 MG TAB PO SCH (21:22)
[2017-02-10] MEDS: HEPARIN SODIUM 100 U/ML 5 ML SYG IV PRN (21:23)
[2017-02-10] MEDS: SODIUM CHLORIDE 0.9% (FLUSH) 10 ML SYG IV PRN (21:23)
[2017-02-11] MEDS: INSULIN LISPRO 100 UNITS/ML PEN SUBCU SCH ×4 (07:48→21:00)
[2017-02-11] MEDS ORDERED: SODIUM CHLORIDE 0.9% 250ML 250 ML ONE ×2 (08:03→18:59)
[2017-02-11] MEDS ORDERED: VANCOMYCIN HCL INJ 1,000 MG VIAL IVPB ONE ×2 (08:04→19:00)
[2017-02-11] MEDS: BIFIDOBACTERIUM INFANTIS 4 MG CAP PO SCH (08:40)
[2017-02-11] MEDS: LISINOPRIL 10 MG TAB PO SCH (08:40)
[2017-02-11] MEDS: GABAPENTIN 300 MG CAP PO SCH ×2 (08:40→20:41)
[2017-02-11] MEDS: DOCUSATE SODIUM 100 MG CAP PO SCH (08:40)
[2017-02-11] MEDS: glyBURIDE 5 MG TAB PO SCH ×2 (08:41→16:37)
[2017-02-11] MEDS: metFORMIN XR 500 MG TAB.ER.24 PO SCH ×2 (08:41→16:37)
[2017-02-11] MEDS: HEPARIN SODIUM 100 U/ML 5 ML SYG IV SCH ×2 (08:41→19:38)
[2017-02-11] MEDS: hydroCHLOROthiazide 25 MG TAB PO SCH (08:41)
[2017-02-11] MEDS: SODIUM CHLORIDE 0.9% (FLUSH) 10 ML SYG IV SCH ×3 (08:42→19:38)
--- NOTE | 2017-02-11 09:22 | PN ---
SUPERVISING PHYSICIAN: Eben Sewell MD DATE: 02/11/17 SUBJECTIVE: The patient is continuing to well with his physical therapy efforts. He remains afebrile. He has had no nausea, vomiting or diarrhea and should finish his antibiotic today for a total course of three weeks. OBJECTIVE: VITAL SIGNS: T-max 97.3. Pulse 77. Blood pressure 103/65. Respirations 18. Saturation 93% on room air. I&Os have been well balanced. CHEST: Lungs clear to auscultation bilaterally. HEART: Regular rate and rhythm. ABDOMEN: Soft, nontender. Positive bowel sounds. EXTREMITIES: Left stump is healing well without any signs of infection. Sutures remain in place as well as Steri-Strips. NEUROLOGIC: Alert and oriented times three. LABORATORY: No additional laboratory studies were completed other than vancomycin troughs. On 02/06, it was 21.7. On 02/07, it was 20.4. On 02/09, it was 26.3, which is being managed by pharmacy. He did have a creatinine level on 02/09/17 that was 1.0. MICROBIOLOGY: Surveillance culture for MRSA was negative at 72 hours. ASSESSMENT: 1. Postoperative uczng-uaf-xjex amputation, left leg, performed on 01/26/17 in [facility]. This was performed secondary to chronic osteomyelitis with progressive infection involving the foot as well as Charcot deformity and treated with vancomycin for a total of three weeks with completion of therapy on 02/11/17. 2. History of methicillin-resistant Staphylococcus aureus infection with osteomyelitis of the left foot tissue and bacteremia with blood culture as well being positive and being treated with vancomycin scheduled to be completed today, 02/11/17 , total of three weeks of treatment. 3. Non-insulin dependent diabetes mellitus, symptomatic with peripheral neuropathies, but well controlled while on Swing Bed. 4. History of hypertension. 5. Obesity with body mass index of 32.6. PLAN: The patient will finish vancomycin today. He was unable to have echocardiogram completed last Saturday02/05/[address] Manuel cancelling his clinic that day. He is scheduled to have the echocardiogram in the morning 2016. He will finish his last does of vancomycin tonight, and has been therapeutic while in Swing Bed. Will treat accordingly and consult with Dr Henning as those results are made available. We will continue with physical therapy efforts and rehabilitation. Luma, our social media designer, continues to assist in securing [employer] to assist in securing good and adequate prosthesis to assist with his ongoing daily care and activities. Anticipation of first date of that will be February. He is to see his orthopedist in [place] in approximately three weeks . Until then, we will continue to monitor the patient closely and treat appropriately. [facility][id number] [facility]
[2017-02-11] MEDS: ASCORBIC ACID 500 MG TAB PO SCH ×2 (09:30→20:41)
[2017-02-11] MEDS: VANCOMYCIN HCL INJ 1,000 MG in SODIUM CHLORIDE 0.9% 250ML 250 ML IVPB SCH ×2 (10:40→19:39)
[2017-02-11] MEDS: ENOXAPARIN SODIUM 40 MG/0.4 ML SYG SUBCU SCH (20:41)
[2017-02-11] MEDS: PRAVASTATIN SODIUM 20 MG TAB PO SCH (20:41)
[2017-02-11] MEDS: SODIUM CHLORIDE 0.9% (FLUSH) 10 ML SYG IV PRN (21:50)
[2017-02-11] MEDS: HEPARIN SODIUM 100 U/ML 5 ML SYG IV PRN (21:52)
[2017-02-12] MEDS: INSULIN LISPRO 100 UNITS/ML PEN SUBCU SCH ×4 (07:02→21:01)
[2017-02-12] MEDS: metFORMIN XR 500 MG TAB.ER.24 PO SCH ×2 (08:16→16:42)
[2017-02-12] MEDS: DOCUSATE SODIUM 100 MG CAP PO SCH (08:16)
[2017-02-12] MEDS: hydroCHLOROthiazide 25 MG TAB PO SCH (08:16)
[2017-02-12] MEDS: BIFIDOBACTERIUM INFANTIS 4 MG CAP PO SCH (08:16)
[2017-02-12] MEDS: GABAPENTIN 300 MG CAP PO SCH ×2 (08:16→20:59)
[2017-02-12] MEDS: LISINOPRIL 10 MG TAB PO SCH (08:17)
[2017-02-12] MEDS: glyBURIDE 5 MG TAB PO SCH ×2 (08:17→16:42)
[2017-02-12] MEDS: ASCORBIC ACID 500 MG TAB PO SCH ×2 (08:17→20:59)
[2017-02-12] MEDS: SODIUM CHLORIDE 0.9% (FLUSH) 10 ML SYG IV SCH ×2 (08:17→21:00)
[2017-02-12] MEDS: HEPARIN SODIUM 100 U/ML 5 ML SYG IV SCH ×2 (08:18→21:01)
[2017-02-12] MEDS ORDERED: VANCOMYCIN PER PHARMACY INJ SCH (16:30)
[2017-02-12] MEDS ORDERED: SODIUM CHLORIDE 0.9% 250ML 250 ML ONE ×2 (16:34→19:18)
[2017-02-12] MEDS ORDERED: VANCOMYCIN HCL INJ 1,000 MG VIAL IVPB ONE ×2 (16:35→19:18)
[2017-02-12] MEDS: VANCOMYCIN HCL INJ 1,000 MG in SODIUM CHLORIDE 0.9% 250ML 250 ML IVPB SCH (16:42)
--- NOTE | 2017-02-12 18:38 | PN ---
DATE: 02/12/17 SUPERVISING PHYSICIAN: Eben Sewell M.D. SUBJECTIVE: The patient is sitting on the side of his bed. His is at the bedside. Discussed his echocardiogram results per Dr. Manuel today and explained to the patient that he would need to stay for further vancomycin treatments until he is scheduled with a BEAU in [place]. After the results of that test, it will be decided if he is discharged or not. OBJECTIVE: VITAL SIGNS: Temperature 96.1, heart rate 79, blood pressure 125/75 , respiratory rate 18, O2 sat is 94% on room air. GENERAL: This is a 61 year- old male patient who is sitting up in his hospital bed in no acute distress. RESPIRATORY: Clear to auscultation bilaterally. CARDIAC: Regular rate and rhythm. ABDOMEN: Soft, nondistended, non-tender. Bowel sounds are positive. EXTREMITIES: No cyanosis, clubbing or edema to the right leg. His left below- the-knee amputation has a dressing that is dry and intact. NEUROLOGIC: He is awake, alert and oriented times three. There are no laboratory or films to report today. ASSESSMENT: 1. Postoperative rzlyh-rct-pihi amputation left leg performed on 01/26/17 in [place] at [facility]. It was performed by Dr. Vin Nobles, orthopedic surgeon. This was performed secondary to chronic osteomyelitis with progressive infection involving the foot as well as Charcot deformity and treated with vancomycin for a total of 3 [address]. Parada, we will continue vancomycin treatment until cleared by BEAU to rule out any vegetation. 2. History of Methicillin resistant Staphylococcus aureus infection with osteomyelitis of the left foot tissue bacteremia and positive blood culture. 3. Fiw-zokdiyr-osrvgczwb diabetes mellitus. 4. Hypertension. 5. Obesity. PLAN: Transthoracic echocardiogram was done this morning per Dr. Manuel. It was inconclusive as to vegetation on the heart valves. I spoke with Dr. Henning today and she said to continue the vancomycin treatment until he could be cleared by BEAU. We will schedule a BEAU in outpatient at [place] in the next day or 2. Meanwhile we will continue on his vancomycin treatment per Pharmacy protocol. I will also order some routine labs plus a CRP and an ESR. If he is cleared by BEAU, we can discontinue the vancomycin and send the patient home. Luma Flaherty, our Mastercam Programmer, has assisted in securing work force to assist with his prosthesis and that will be done around the first february. He is to see his orthopedist, Dr. Nobles, in [place] at approximately 3 weeks. Until then, we will continue to monitor the patient closely and followup as needed. Dr. Sewell is the collaborating physician available for consultation. [facility][id number] [facility]
[2017-02-12] MEDS: PRAVASTATIN SODIUM 20 MG TAB PO SCH (20:59)
[2017-02-12] MEDS: ENOXAPARIN SODIUM 40 MG/0.4 ML SYG SUBCU SCH (21:00)
[2017-02-13] MEDS: VANCOMYCIN HCL INJ 1,000 MG in SODIUM CHLORIDE 0.9% 250ML 250 ML IVPB SCH (03:45)
[2017-02-13] MEDS ORDERED: SODIUM CHLORIDE 0.9% 250ML 0 ML ONE ×2 (07:20→17:35)
[2017-02-13] MEDS ORDERED: VANCOMYCIN HCL INJ 1,000 MG VIAL IVPB ONE ×2 (07:22→17:35)
[2017-02-13] MEDS: INSULIN LISPRO 100 UNITS/ML PEN SUBCU SCH ×4 (07:53→20:50)
[2017-02-13] MEDS: metFORMIN XR 500 MG TAB.ER.24 PO SCH ×2 (07:55→16:55)
[2017-02-13] MEDS: glyBURIDE 5 MG TAB PO SCH ×2 (07:55→16:55)
[2017-02-13] MEDS: LISINOPRIL 10 MG TAB PO SCH (09:15)
[2017-02-13] MEDS: BIFIDOBACTERIUM INFANTIS 4 MG CAP PO SCH (09:15)
[2017-02-13] MEDS: GABAPENTIN 300 MG CAP PO SCH ×2 (09:15→20:50)
[2017-02-13] MEDS: HEPARIN SODIUM 100 U/ML 5 ML SYG IV SCH ×2 (09:16→20:49)
[2017-02-13] MEDS: hydroCHLOROthiazide 25 MG TAB PO SCH (09:16)
[2017-02-13] MEDS: ASCORBIC ACID 500 MG TAB PO SCH ×2 (09:16→20:51)
[2017-02-13] MEDS: SODIUM CHLORIDE 0.9% (FLUSH) 10 ML SYG IV SCH ×2 (09:16→20:51)
[2017-02-13] MEDS: DOCUSATE SODIUM 100 MG CAP PO SCH (09:16)
[2017-02-13] MEDS ORDERED: diphenhydrAMINE HCL 25 MG CAP PO ONE (14:50)
[2017-02-13] MEDS ORDERED: diphenhydrAMINE HCL 25 MG CAP ONE (17:35)
[2017-02-13] MEDS: ENOXAPARIN SODIUM 40 MG/0.4 ML SYG SUBCU SCH (20:49)
[2017-02-13] MEDS: PRAVASTATIN SODIUM 20 MG TAB PO SCH (20:50)
[2017-02-13 23:24] VITALS: BP 131/74; TEMP 98.6; O2SAT 97
[2017-02-14] MEDS: INSULIN LISPRO 100 UNITS/ML PEN SUBCU SCH ×3 (07:55→16:20)
[2017-02-14] MEDS: metFORMIN XR 500 MG TAB.ER.24 PO SCH ×2 (07:55→16:41)
[2017-02-14] MEDS: glyBURIDE 5 MG TAB PO SCH ×2 (07:55→16:41)
[2017-02-14] MEDS: DOCUSATE SODIUM 100 MG CAP PO SCH (11:48)
[2017-02-14] MEDS: BIFIDOBACTERIUM INFANTIS 4 MG CAP PO SCH (11:48)
[2017-02-14] MEDS: LISINOPRIL 10 MG TAB PO SCH (11:49)
[2017-02-14] MEDS: GABAPENTIN 300 MG CAP PO SCH (11:49)
[2017-02-14] MEDS: hydroCHLOROthiazide 25 MG TAB PO SCH (11:49)
[2017-02-14] MEDS: HEPARIN SODIUM 100 U/ML 5 ML SYG IV SCH (11:49)
[2017-02-14] MEDS: SODIUM CHLORIDE 0.9% (FLUSH) 10 ML SYG IV SCH (11:49)
[2017-02-14] MEDS: ASCORBIC ACID 500 MG TAB PO SCH (11:50)
--- NOTE | 2017-02-14 19:41 | DS ---
SUPERVISING PHYSICIAN: Eben Sewell M.D. DISCHARGE DIAGNOSIS: 1. Postoperative jeghb-flq-vtjo amputation left leg performed on 01/26/17 in [place] at [facility]. It was performed by Dr. Vin Nobles, orthopedic surgeon. This was performed secondary to chronic osteomyelitis with progressive infection involving the foot as well as Charcot deformity and treated with vancomycin for a total of 3 weeks. 2. History of Methicillin resistant Staphylococcus aureus infection with osteomyelitis of the left foot tissue bacteremia and positive blood culture. 3. Cou-tosvhqd-ifzrvfahl diabetes mellitus. 4. Hypertension. 5. Obesity. HISTORY OF PRESENT ILLNESS: This is a 61 year-old male patient who has a significant history of diabetes as well as osteomyelitis. He developed a blood blister on the second an third toe of his left foot. Initially he had tried to treat it with Epson salts and on Saturday prior to his admission he was started on an initial dose of Clindamycin, however over the weekend his antibiotic treatment failed to provide improvement and therefore he presented to the clinic at [facility] and at that point was directly admitted to the Medical/Surgical floor on 01/22/17. X-rays of his foot indicated he had severe Charcot deformity with fragmentations of bone with diffuse cellulitis in the forefoot with osteomyelitis involving the second distal phalange. He developed a positive blood culture and was initiated on vancomycin per Pharmacy protocol as well as being on Flagyl and Levaquin for treatment of underlying osteomyelitis. On 01/25/17, Mr. Castro was transferred to [facility] in [place] secondary to increasing severity of underlying septicemia and bacteremia, and ongoing problem with osteomyelitis is noted on admission. He was transferred on 01/25/17 and on 01/26/17 had a awfho-iec-azjq amputation of the left leg for the ongoing osteomyelitis and severe disease process per Dr. Vin Nobles, orthopedic surgeon. The patient recovered well at [facility] and remained on vancomycin. He was in need of ongoing physical therapy and rehabilitation as well as continuation of IV antibiotics, so he was transferred back to [facility] for Swing Bed admission. HOSPITAL COURSE: During his Swing Bed admission, he progressed very nicely with his physical therapy and rehabilitation. He continued for 3 total weeks of vancomycin therapy and at the request of Dr. Henning, Infectious Diseases physician in [place], requested that an echocardiogram be done prior to the discontinuation of the vancomycin. Dr. Tramaine Manuel, telephone repairer, did a transthoracic echocardiogram on 02/12/17 that was inconclusive for vegetation on his heart valves, and per Dr. Henning's recommendation before she could discontinue his vancomycin she recommended that he have a transesophageal echocardiogram. Dr. Manuel agreed to do that in [place] and this morning the patient was taken by his to [facility] for a BEAU. He returned to the hospital. Dr. Manuel called and reported that there was no vegetation seen per BEAU and I contacted Dr. Henning and she recommended that he have his PICC line discontinued and that he be sent home on 14 days of Doxycycline, and to have close followup with her in the office. DISCHARGE PLAN: The patient will be discharged home in stable condition. I have given him 14 days of Doxycycline p.o. antibiotics plus a day. Luma Flaherty, our social services manager, initiated assistance by work force securing good and adequate prosthesis to continue for his ongoing daily care and activities. Anticipation of the first day of that will be in February. He also has a followup with Dr. Henning on 02/25/17 and he has a followup with Dr. Nobles in [place] around March 01. He is to see his primary care physician, Loly Richardson, on February 26. He is to followup with Loly Richardson, Dr. Nobles and Dr. Henning for any further complications or return to the hospital as needed. DISCHARGE MEDICATIONS: 1. Pravastatin. 2. Glyburide. 3. Lisinopril. 4. Ranitidine. 5. Metformin. 6. Hydrochlorothiazide. 7. Gabapentin. 8. Vitamin C. 9. Mylanta. 10. Hydrocodone. 11. Align. 12. Doxycycline. Dr. Sewell is the collaborating physician and available for consultation. #[id number] [facility]
== END 2017-02-14 18:00 | disposition home or self-care (01) | DRG 561 ==
LOC: MS 15:43
PROVIDERS: ADMIT Nurse Practitioner Family; ATTEND Nurse Practitioner Acute Care
DX: Z47.1 Aftercare following joint replacement surgery (principal); Z96.652 Presence of left artificial knee joint; I10 Essential (primary) hypertension; E11.42 Type 2 diabetes mellitus with diabetic polyneuropathy; E66.9 Obesity, unspecified; B95.62 Methicillin resistant Staphylococcus aureus infection as the cause of diseases classified elsewhere; Z79.84 Long term (current) use of oral hypoglycemic drugs; Z68.32 Body mass index [BMI] 32.0-32.9, adult

== ENCOUNTER 2017-07-12 10:57 | Emergency (ER) | payer OTHER, SELFPAY ==
[2017-07-12 11:13] VITALS: TEMP 96.8
--- NOTE | 2017-07-12 11:19 | ED.PDOC ---
History of Present Illness - General Chief Complaint: General Stated Complaint: dizziness,right sided facial droop Time Seen by Provider: 07/12/17 11:10 Source: patient Exam Limitations: no limitations - History of Present Illness Initial Comments: Marvin Castro 62y/o male was sent to er by Md because of dizziness for 3 days and occasional ringing in ears mark by primary Md and noted with impacted earwax both ears was irrigated then also she noticed that right side face was a little droopy.No weakness ,no dysarthria,no blurry vision.He was advised to come here and be scanned. Has DM2,HTN Timing/Duration: 1-3 hours Improving Factors: nothing Allergies/Adverse Reactions: Allergies NO KNOWN ALLERGY Allergy (Verified 01/22/17 17:53) Home Medications: Ambulatory Orders Pravastatin Sodium [Pravachol] 20 mg PO BEDTIME 01/22/17 Lisinopril [Prinivil] 20 mg PO DAILY 01/25/17 glyBURIDE [Diabeta] 5 mg PO BIDFD 01/25/17 Alum & Mag Hydrox-Simethicone [Mylanta] 30 ml PO Q4HR PRN 02/01/17 Ascorbic Acid [Sunkist Vitamin C 500 mg] 1 chw PO BID 02/01/17 Gabapentin 300 mg PO DAILY 02/01/17 Gabapentin 600 mg PO BEDTIME 02/01/17 HYDROcodone 5MG/APAP 325MG [Comfrey 5/325] 1 ea PO Q6HR PRN 02/01/17 Hydrochlorothiazide 25 mg PO DAILY 02/01/17 Metformin HCl [Metformin HCl ER] 500 mg PO BIDPC 02/01/17 Ranitidine HCl 150 mg PO BID 02/01/17 Bifidobacterium Infantis [Align] 4 mg PO DAILY 02/14/17 Doxycycline Hyclate 100 mg PO BID #28 tab 02/14/17 Review of Systems - Review of Systems Constitutional: States: no symptoms reported EENTM: States: see HPI Respiratory: States: no symptoms reported Cardiology: States: no symptoms reported Gastrointestinal/Abdominal: States: no symptoms reported Genitourinary: States: no symptoms reported Musculoskeletal: States: no symptoms reported Skin: States: no symptoms reported Neurological: States: see HPI Past Medical History (General) - Patient Medical History Hx Seizures: No Hx Stroke: No Hx Asthma: No Hx of COPD: No Hx Congestive Heart Failure: No Hx Pacemaker: No Hx Hypertension: Yes Hx Diabetes: Yes - Type 2 Hx MRSA: Yes MRSA Source:: Wound Surgical History: other - BKA left leg - Vaccination History Hx Influenza Vaccination: No Hx Pneumococcal Vaccination: No - Social History Hx Tobacco Use: No Hx Alcohol Use: No Hx Substance Use: No Hx Physical Abuse: No Hx Emotional Abuse: No Family Medical History - Family History Mother Living Status: Age at (years of age): 70 Hx Family Hypertension: Yes - parents Hx Family Stroke: Yes Hx Cardiac Disease: Yes - parents Hx Family Diabetes: Yes - parents Hx Family Cancer: Yes - brothers-liver /brain Brother Hx Family Cancer: Yes - both brothers Father Living Status: Hx Family Diabetes: Yes Physical Exam - Physical Exam General Appearance: Alert, Comfortable, No apparent distress Eye Exam: bilateral normal Ears, Nose, Throat: hearing grossly normal, normal ENT inspection, normal pharynx, other - cerumen leaft ear canal,edentulous upper and lower gums,face symmetrical Neck: non-tender, full range of motion, supple Respiratory: chest non-tender, lungs clear, normal breath sounds, no respiratory distress Cardiovascular/Chest: normal peripheral pulses, regular rate, rhythm, no murmur Gastrointestinal/Abdominal: normal bowel sounds, non tender, soft, no organomegaly Extremity: normal range of motion, non-tender, normal inspection, no pedal edema , no calf tenderness Neurologic: gin clerk II-XII nml as tested, no motor/sensory deficits, alert, normal mood/affect, oriented x 3, facial droop - none noted patien edentulous,able to puff both cheeks no weakness,pronator drift negative, other Skin Exam: normal color, warm/dry Progress - Progress Progress: 07/12/17 11:29 Last Vital Signs Temp 96.8 F L 07/12/17 11:06 Pulse 86 07/12/17 11:06 Resp 20 07/12/17 11:06 BP 162/86 07/12/17 11:06 Pulse Ox 96 07/12/17 11:06 - Results/Orders Results/Orders: Laboratory Tests 07/12/17 07/12/17 11:30 11:47 WBC 6.9 RBC 4.54 L Hgb 14.0 Hct 40.4 L MCV 88.8 MCH 30.8 MCHC 34.6 RDW 13.3 Plt Count 203 MPV 7.3 L Absolute Neuts (auto) 4.30 Absolute Lymphs (auto) 1.30 Absolute Monos (auto) 1.00 H Absolute Eos (auto) 0.20 Absolute Basos (auto) 0.10 Neutrophils % 62.7 Lymphocytes % 19.3 L Monocytes % 14.9 H Eosinophils % 2.3 Basophils % 0.8 PT 11.5 INR 1.020 PTT (SP) 28.1 Sodium 135 Potassium 4.7 Chloride 99 L Carbon Dioxide 28 Anion Gap 12.7 BUN 23 H Creatinine 1.09 BUN/Creatinine Ratio 21.1 H Random Glucose 127 H Serum Osmolality 275.4 Calcium 10.1 Magnesium 1.8 Total Bilirubin 0.3 Direct Bilirubin < 0.1 Indirect Bilirubin 0.2 AST 40 ALT 44 Alkaline Phosphatase 40 L Creatine Kinase 502 H* CK-MB (CK-2) 8.5 H* CK-MB (CK-2) % 1.69 Troponin I < 0.02 Serum Total Protein 8.2 Albumin 4.5 Urine Color Yellow Urine Appearance Clear Urine pH 6.0 Ur Specific [place] 1.010 Urine Protein Trace Urine Glucose (UA) 100 H Urine Ketones Negative Urine Blood Trace-intact H Urine Nitrite Negative Urine Bilirubin Negative Urine Urobilinogen 0.2 Ur Leukocyte Esterase Negative Urine RBC 0 Urine WBC 0 Ur Epithelial Cells 0 Urine Bacteria 0 - EKG/XRAY/CT EKG: Sinus, no ST T wave changes Comments: heart rate-88 CT Ordered: Yes - no acute intracranial abnormality;remote frontal lobe encephalomalacia Departure - Departure Clinical Impression: Dizziness of unknown cause Tinnitus aurium Qualifiers: Laterality: left Qualified Code(s): H93.12 - Tinnitus, left ear Rhabdomyolysis Qualifiers: Rhabdomyolysis type: non-traumatic Qualified Code(s): M62.82 - Rhabdomyolysis Time of Disposition: 12:57 Disposition: Discharge to Home or Self Care Condition: Fair Departure Forms: ED Discharge - Pt. Copy, Patient Portal Self Enrollment Instructions: Combating Dizziness in Older Adults Referrals: Cailin Leonard NP [Primary Care Provider] - 1-2 Weeks Home Medications: Ambulatory Orders Pravastatin Sodium [Pravachol] 20 mg PO BEDTIME 01/22/17 Lisinopril [Prinivil] 20 mg PO DAILY 01/25/17 glyBURIDE [Diabeta] 5 mg PO BIDFD 01/25/17 Alum & Mag Hydrox-Simethicone [Mylanta] 30 ml PO Q4HR PRN 02/01/17 Ascorbic Acid [Sunkist Vitamin C 500 mg] 1 chw PO BID 02/01/17 Gabapentin 300 mg PO DAILY 02/01/17 Gabapentin 600 mg PO BEDTIME 02/01/17 HYDROcodone 5MG/APAP 325MG [Comfrey 5/325] 1 ea PO Q6HR PRN 02/01/17 Hydrochlorothiazide 25 mg PO DAILY 02/01/17 Metformin HCl [Metformin HCl ER] 500 mg PO BIDPC 02/01/17 Ranitidine HCl 150 mg PO BID 02/01/17 Bifidobacterium Infantis [Align] 4 mg PO DAILY 02/14/17 Doxycycline Hyclate 100 mg PO BID #28 tab 02/14/17 Additional Instructions: Follow up with primary Md 07/15/2017
--- NOTE | 2017-07-12 12:38 | CT ---
EXAM DESCRIPTION: Head CLINICAL HISTORY: facial asymmetry COMPARISON: None available. TECHNIQUE: Axial CT images of the head were performed without contrast. This exam was performed according to our departmental dose-optimization program which includes automated exposure control, adjustment of the mA and/or kV according to patient size and/or use of iterative reconstruction technique. FINDINGS: Observations: * Extra axial spaces: No abnormal extra-axial fluid collection. * Hemorrhage: None * Ventricular system: Maintained. * Basal cisterns: Intact * Cerebral parenchyma: Area of encephalomalacia/remote insult is seen within the right frontal lobe towards the vertex. Crawley-white matter differentiation is maintained. No mass or mass effect is demonstrated. * Midline shift: None * Cerebellum: Intact Other: * Calvarium: Intact * Visualized Paranasal sinuses: Mild right maxillary sinus disease. No air-fluid level. * Visualized Orbits: Normal * Sella and skull base: Intact IMPRESSION: No CT evidence for acute intracranial pathology. Remote insult right frontal lobe. Electronically signed by: Aayush Fox MD 07/12/2017 12:36 PM [facility]
[2017-07-12 13:11] VITALS: BP 136/96; O2SAT 95
== END 2017-07-12 13:11 | disposition home or self-care (01) ==
LOC: ER 10:57
DX: H93.12 Tinnitus, left ear (principal); M62.82 Rhabdomyolysis; E11.9 Type 2 diabetes mellitus without complications; Z89.512 Acquired absence of left leg below knee

== ENCOUNTER 2019-05-23 09:44 | Emergency (ER) | payer BC, OTHER ==
[2019-05-23] MEDS ORDERED: cloNIDine HCL 0.1 MG TAB PO ONE ×3 (10:05→10:29)
[2019-05-23] MEDS ORDERED: ACETAMINOPHEN 500 MG TAB PO ONE (10:06)
--- NOTE | 2019-05-23 10:12 | ED.PDOC ---
History of Present Illness - General Chief Complaint: Cardiovascular Problem Stated Complaint: Elevated BP, headache Time Seen by Provider: 05/23/19 10:01 - History of Present Illness Initial Comments: Pt is a 64 year old M w/ pmh of DM, HTN who presents to the ED c/o a headache and elevated BP. Says that his BP this AM was as high as 240 systolic. It has never been this high before. Associated with a mild, frontal headache. Reports that he has had similar headaches when his BP is high. He takes lisinopril for his BP, which he took this AM. Denies cp, sob, blurry vision, abd pain. Allergies/Adverse Reactions: Allergies NO KNOWN ALLERGY Allergy (Verified 05/23/19 09:53) Home Medications: Ambulatory Orders Pravastatin Sodium [Pravachol] 20 mg PO BEDTIME 01/22/17 Lisinopril [Prinivil] 20 mg PO DAILY 01/25/17 glyBURIDE [Diabeta] 5 mg PO BIDFD 01/25/17 Ranitidine HCl 150 mg PO BID 02/01/17 Clonidine HCl [Clonidine Hydrochloride] 0.1 mg PO Q6HR PRN #20 tab 05/23/19 Review of Systems - Review of Systems Constitutional: States: no symptoms reported EENTM: States: no symptoms reported Respiratory: States: no symptoms reported Cardiology: States: no symptoms reported Gastrointestinal/Abdominal: States: no symptoms reported Genitourinary: States: no symptoms reported Musculoskeletal: States: no symptoms reported Skin: States: no symptoms reported Neurological: States: headache. Denies: numbness Endocrine: States: no symptoms reported Hematologic/Lymphatic: States: no symptoms reported Past Medical History (General) - Patient Medical History Hx Seizures: No Hx Stroke: No Hx Asthma: No Hx of COPD: No Hx Cardiac Disorders: No Hx Congestive Heart Failure: No Hx Pacemaker: No Hx Hypertension: Yes Hx Diabetes: Yes Hx Gastroesophageal Reflux: Yes Hx Cancer: No Hx MRSA: Yes MRSA Source:: Wound Surgical History: other - Vaccination History Hx Tetanus, Diphtheria Vaccination: Yes Hx Influenza Vaccination: No Hx Pneumococcal Vaccination: Yes - Social History Hx Tobacco Use: No Hx Alcohol Use: Yes - Not current Hx Substance Use: No Hx Substance Use Treatment: No Hx Depression: No Hx Physical Abuse: No Hx Emotional Abuse: No - Female History Patient is a Female of Child Bearing Age (10 -59 yrs old): No Patient : No Family Medical History - Family History Mother Living Status: Age at (years of age): 70 Hx Family Hypertension: Yes - parents Hx Family Stroke: Yes Hx Cardiac Disease: Yes - parents Hx Family Diabetes: Yes - parents Hx Family Cancer: Yes - brothers-liver /brain Brother Hx Family Cancer: Yes - both brothers Father Living Status: Hx Family Diabetes: Yes Physical Exam - Physical Exam General Appearance: Alert, Comfortable Ears, Nose, Throat: hearing grossly normal, normal ENT inspection Neck: non-tender, full range of motion Respiratory: lungs clear, normal breath sounds Cardiovascular/Chest: regular rate, rhythm, no edema Gastrointestinal/Abdominal: non tender, soft Extremity: normal range of motion, non-tender, other - L BKA Neurologic: head inspector II-XII nml as tested, no motor/sensory deficits, alert, normal mood/affect, oriented x 3 Skin Exam: normal color, warm/dry Progress - Progress Progress: 05/23/19 10:12 MDM 64 y.o. w/ pmh of DM and HTN here with elevated BP and slight headache. Similar headaches previously when BP is up. Overall well appearing. Only takes 20mg lisinopril. Plan to treat BP/symptoms, reassess. 05/23/19 11:07 BP improved to 169/111, headache resolved. Will d/c with clonidine prn, PCP f/u. - Results/Orders Results/Orders: POC glucose 210 - EKG/XRAY/CT Comments: NSR @ 94, normal axis, normal intervals, no STEMI Departure - Departure Clinical Impression: Hypertensive urgency Disposition: Discharge to Home or Self Care Departure Forms: ED Discharge - Pt. Copy, Patient Portal Self Enrollment Instructions: High Blood Pressure in Adults Prescriptions: Clonidine HCl [Clonidine Hydrochloride] 0.1 mg PO Q6HR PRN #20 tab PRN Reason: Hypertension Home Medications: Ambulatory Orders Pravastatin Sodium [Pravachol] 20 mg PO BEDTIME 01/22/17 Lisinopril [Prinivil] 20 mg PO DAILY 01/25/17 glyBURIDE [Diabeta] 5 mg PO BIDFD 01/25/17 Ranitidine HCl 150 mg PO BID 02/01/17 Clonidine HCl [Clonidine Hydrochloride] 0.1 mg PO Q6HR PRN #20 tab 05/23/19
[2019-05-23 11:23] VITALS: BP 176/98; TEMP 97; O2SAT 96
== END 2019-05-23 11:18 | disposition home or self-care (01) ==
LOC: ER 09:44
DX: I16.0 Hypertensive urgency (principal); E11.9 Type 2 diabetes mellitus without complications; K21.9 Gastro-esophageal reflux disease without esophagitis; Z86.14 Personal history of Methicillin resistant Staphylococcus aureus infection

== ENCOUNTER → 2020-05-26 | Outpatient (CLI) | payer MEDICARE ==
--- NOTE | 2020-05-26 14:21 | US ---
EXAM DESCRIPTION: Liver: ULTRASOUND. CLINICAL HISTORY: ELEVATED LFT'S COMPARISON: None. TECHNIQUE: Transabdominal scannin-dimensional and Doppler modes. FINDINGS: Gallbladder: Normal size. Small echogenic stones in the dependent portion of the gallbladder. Echogenic nondependent structures were without acoustic shadowing. "Ringdown" artifact. No fluid around the gallbladder. Wall thickening 4.8 mm Non-tender with transducer pressure. Common bile duct: caliber 4.3 mm within normal limits. Liver: Heterogeneously increased echogenicity; contour liver capsule smooth where seen. No fluid around the liver. Intrahepatic biliary ducts normal caliber. Doppler hepatopedal flow portal vein. 8 mm. Long axis right lobe 14.7 cm. Pancreas: normal size and echogenicity. Duct not seen. Right kidney: long axis measures 11.9 cm. Volume 285.5 ml. Cortical echogenicity Normal. Cortical thickness negative no echogenic stones; no hydronephrosis. Aorta proximal: 1.9 cm normal caliber. IMPRESSION: Steatosis liver but otherwise unremarkable. Pancreas negative. Gallbladder sludge and stones. CBD normal caliber. Kidney negative. Normal caliber of aorta. Electronically signed by: Glenroy Mustafa MD 05/26/2020 2:19 PM CDT
== END ==
LOC: LAB 08:51
PROVIDERS: ATTEND Internal Medicine Infectious Disease
DX: K76.0 Fatty (change of) liver, not elsewhere classified (principal); R94.5 Abnormal results of liver function studies; K80.20 Calculus of gallbladder without cholecystitis without obstruction; L03.115 Cellulitis of right lower limb

== ENCOUNTER → 2020-06-01 | Outpatient (CLI) | payer MEDICARE ==
[~2020-06-01] MED LIST: DAPTOMYCIN 500 MG VIAL IVPB ONE
== END ==
LOC: LAB.O 15:24 → INFRM 15:24 → EDSTATUS 15:32
PROVIDERS: ATTEND Internal Medicine Infectious Disease
DX: R94.5 Abnormal results of liver function studies (principal)

== ENCOUNTER → 2020-06-08 | Outpatient (CLI) | payer MEDICARE | LOC: LAB.O 09:53 | PROVIDERS: ATTEND Nurse Practitioner Family | DX: M86.179 Other acute osteomyelitis, unspecified ankle and foot (principal) ==

== ENCOUNTER → 2020-09-26 | Outpatient (CLI) | payer MEDICARE | LOC: LAB.O 13:12 | PROVIDERS: ATTEND Internal Medicine Infectious Disease | DX: L02.611 Cutaneous abscess of right foot (principal) ==